=== PATIENT | male | born 1950 | race Caucasian/White ===

== ENCOUNTER 2016-07-24 20:25 | Observation (INO) | payer OTHER ==
--- NOTE | 2016-07-24 20:36 | NUR ---
PER EATING DINNER 1999, PT HAD DIFFICULTY NAVIGATING WITH L SIDE, SPEECH SL THICK, HAD PA LAST WEEK AND WAS STENTED, PT SL WEAKER L ARM ?SL FACIAL DROOP L SIDE. DISCUSSED WITH PT TO FOR FOR EMERGENT HEAD CT
--- NOTE | 2016-07-24 20:45 | NUR ---
PT TO CT ON CM WITH THIS RN. PT AWAKE/ALERT WITH EASY WOB, DENIES PAIN. L SIDED FACIAL DROOP AND SLURRED SPEECH NOTED. REPORTS TO THIS RN AT AT 2000 PT ATTEMPED TO GET OFF THE COUCH BUT WAS "SLUMPED OVER TO HIS LEFT SIDE, DROOLING ALOT, COULDN'T USE HIS L ARM OR GET UP WITH HIS L LEG." ON ARRIVAL REPORTS THAT SPEECH HAS IMPROVED AND MOVEMENT OF L EXTREMITIES GREATLY IMPROVED. STRONG EQUAL HAND GRASPS NOTED BY THIS RN. NO DRIFT TO UPPER OR LOWER EXTREMITIES. A&0X3. DENIES PAIN. PT WITH HX OF [place] WITH STENTS PLACED LAST WEEK BY MD POSEY. MD GARCIA TO BEDSIDE FOR EVAL UPON RETURN FROM CT.
--- NOTE | 2016-07-24 20:51 | ED NEURO DEFICIT/STROKE ---
History of Present Illness General Chief Complaint: General Adult Stated Complaint: "LEFT SIDE WEAKNESS, HAD A HEART ATTACK LAST WEEK" Source: patient, family, old records Exam Limitations: no limitations Vital Signs & Intake/Output Vital Signs & Intake/Output Vital Signs Date Time Temp Pulse Resp B/P B/P Pulse O2 O2 Flow FiO2 Mean Ox Delivery Rate 07/24 2226 96.7 60 16 155/79 98 Room Air 07/24 2120 Room Air 07/24 2036 96.6 95 22 159/78 96 Allergies Coded Allergies: No Known Allergies (07/24/16) Reconcile Medications Aspirin (Ecotrin*) 81 MG TABLET.DR 1 TAB PO QAM HEART/BLOOD (Reported) Atorvastatin Calcium (Lipitor) 80 MG TABLET 1 TAB PO QPM CHOLESTEROL ( Reported) Carvedilol 12.5 MG TABLET 1 TAB PO BID HEART/BP (Reported) Cholecalciferol (Vitamin D3) 1,000 UNIT TABLET 1 TAB PO QAM SUPPLEMENT ( Reported) Cyanocobalamin (Vitamin B-12) 1,000 MCG TABLET 1 TAB PO QAM SUPPLEMENT ( Reported) Insulin-Lantus (Lantus) 100 UNIT/ML VIAL 25 UNITS SC QPM DM (Reported) Lisinopril 10 MG TABLET 1 TAB PO QPM BP (Reported) Metformin HCl 1,000 MG TABLET 1 TAB PO BID DM (Reported) Multivitamin (Multi-Day Vitamins) 1 EACH TABLET 1 TAB PO QAM SUPPLEMENT ( Reported) Sertraline HCl 25 MG TABLET 1 TAB PO QAM MENTAL HEALTH (Reported) Ticagrelor (Brilinta) 90 MG TABLET 1 TAB PO BID HEART/BLOOD (Reported) Triage Note: PER EATING DINNER 1999, PT HAD DIFFICULTY NAVIGATING WITH L SIDE, SPEECH SL THICK, HAD [place] LAST WEEK AND WAS STENTED, PT SL WEAKER L ARM ?SL FACIAL DROOP L SIDE. DISCUSSED WITH PT TO FOR FOR EMERGENT HEAD CT Triage Nurses Notes Reviewed? yes HPI: This was eating dinner with his and HAD LEFT-SIDED WEAKNESS IN THE LEFT FACIAL DROOP. PATIENT HAD AN [place] WITH CARDIAC CATHETERIZATION AND STENT PLACEMENT LAST SUNDAY. PATIENT HAS BEEN ON POLENTA AND ASPIRIN SINCE THEN. THE LEFT-SIDED WEAKNESS HAS RESOLVED HOWEVER HE CONTINUES TO HAVE LEFT FACIAL DROOP AND THICK SPEECH. PATIENT DENIES ANY HEADACHE. THERE IS NO NUMBNESS OR TINGLING. PATIENT DENIES ANY CHEST PAIN OR SHORTNESS OF BREATH. Past History Travel History Traveled to [place] past 21 day No Medical History Any Pertinent Medical History? see below for history Neurological: NONE EENT: NONE Cardiovascular: hypertension, [place] WITH STENT Respiratory: NONE Gastrointestinal: NONE Hepatic: NONE Renal: NONE Musculoskeletal: NONE Psychiatric: NONE Endocrine: IDDM Surgical History Surgical History: non-contributory Psychosocial History What is your primary language Mohawk Tobacco Use: Never used ETOH Use: denies use Illicit Drug Use: denies illicit drug use Family History Hx Contributory? No Review of Systems Review of Systems Constitutional: Reports: no symptoms. EENTM: Reports: no symptoms. Respiratory: Reports: no symptoms. Cardiovascular: Reports: no symptoms. GI: Reports: no symptoms. Genitourinary: Reports: no symptoms. Musculoskeletal: Reports: no symptoms. Skin: Reports: no symptoms. Neurological/Psychological: Reports: see HPI. Hematologic/Endocrine: Reports: no symptoms. Immunologic/Allergic: Reports: no symptoms. All Other Systems: Reviewed and Negative Physical Exam Physical Exam General Appearance: well developed/nourished, alert, awake Head: atraumatic, normal appearance Eyes: Bilateral: PERRL, EOMI. Ears, Nose, Throat: moist mucous membrane, hearing grossly normal Neck: normal inspection, supple, full range of motion Respiratory: normal breath sounds, chest non-tender, no respiratory distress, lungs clear Cardiovascular: regular rate/rhythm, normal peripheral pulses Gastrointestinal: normal bowel sounds, soft, non-tender, no organomegaly Back: normal inspection, normal range of motion Extremities: normal range of motion Psychiatric: awake, alert, oriented x 3 Cranial Nerves: normal hearing, PERRL, facial droop Coordination/Gait: normal finger to nose, normal gait Skin: intact, normal color, warm/dry Lymphatic: no anterior cervical sari Core Measures CVA/TIA Diagnosis: Yes NIH Stroke Scale: Total 3 Date Last Known Well: 07/24/16 Time Last Known Well: 1999 Neurological S/S of CVA: Difficulty Speaking, Left Hemiparesis Symptom Start Date: 07/24/16 Symptom Start Time: 1999 Reason tPA not ordered+ Medical Contraindication Severe Sepsis Present: No Septic Shock Present: No Bedside Dysphagia Screen Bedside Swallow Eval Done: Yes Result of Evaluation: Pass Progress Differential Diagnosis: electrolyte imbalance, intracranial Hem., intracranial mass/tumor, stroke, subarachnoid Hem. Plan of Care: Orders Procedure Date/time Status Nothing by Mouth 07/25 B Active LIPID PANEL 07/25 599 Active CBC WITHOUT DIFFERENTIAL 07/25 599 Active BASIC ELECTROLYTES PLUS BUN&CR 07/25 599 Active Pathway - chart 07/24 2224 Active Pathway - chart 07/25 2223 Active Patient Data 07/[address] in observation 07/24 2205 Active Telemetry/Project Director 07/24 2033 Active TROPONIN LEVEL 07/24 2033 Complete PARTIAL THROMBOPLASTIN TIME 07/24 2033 Complete PROTHROMBIN TIME 07/24 2033 Complete COMPREHENSIVE METABOLIC PANEL 07/24 2033 Complete CBC WITHOUT DIFFERENTIAL 07/24 2033 Complete EKG 07/24 2026 Active [id number] DOPPLER 07/24 UNK Active SWALLOW EVALUATION 07/24 UNK Active PT Evaluate & Treat 07/24 UNK Active House Staff 07/24 UNK Active Occupational Tx Eval & Treat 07/24 UNK Active VTE Mechanical Prophylaxis 07/24 UNK Active Vital Signs 07/24 UNK Active Telemetry/Project Director 07/24 UNK Active Precautions 07/24 UNK Active NIH Stroke Scale 07/24 UNK Active Current Medications Sig/Krystle Start time Last Medication Dose Stop Time Status Admin Acetaminophen 650 MG ONCE ONE 07/24 2244 UNVr (Tylenol) 07/24 2245 Acetaminophen 650 MG Q6P PRN 07/24 2229 UNVr (Tylenol) Acetaminophen/ 1 TAB Q6P PRN 07/24 2229 UNVr Hydrocodone Bitart (Vicodin) Morphine Sulfate 4 MG Q4P PRN 07/24 2229 UNVr (Morphine) Laboratory Tests 07/24/162057: Anion Gap 12, Estimated GFR > 60, BUN/Creatinine Ratio 21.0, Glucose 244 H, Calcium 9.1, Total Bilirubin 0.5, AST 26, ALT 45, Alkaline Phosphatase 85, Troponin I 2.46 *H, Total Protein 6.0 L, Albumin 3.5, Globulin 2.5, Albumin/ Globulin Ratio 1.4, PT 11.3, INR 1.08, APTT 28, CBC w Diff NO MAN DIFF REQ, RBC 4.23 L, MCV 93.2, MCH 30.4, RDW 12.5, MPV 9.7, Gran % 62.7, Lymphocytes % 21.4, Monocytes % 9.0, Eosinophils % 6.0 H, Basophils % 0.9, Absolute Granulocytes 4.9, Absolute Lymphocytes 1.7, Absolute Monocytes 0.7 H, Absolute Eosinophils 0.5, Absolute Basophils 0.1, PUBS MCHC 32.6 L Diagnostic Imaging: Viewed by Me: Radiology Read, CT Scan. Discussed w/RAD: Radiology Read, CT Scan. Radiology Impression: PATIENT: MYLES BOUCHER PRESENT AGE: 66 PATIENT ACCOUNT NO: [id number] : 48 LOCATION: ER ORDERING PHYSICIAN: ANNE GARCIA MD SERVICE DATE: 07/24/16 EXAM TYPE: CAT - CT HEAD WO IV CONTRAST EXAMINATION: CT HEAD WITHOUT CONTRAST CLINICAL INFORMATION: Left-sided weakness COMPARISON: None TECHNIQUE: Contiguous axial imaging was performed from the skull base to vertex without intravenous administration of contrast. DLP: 672.25 mGy-cm FINDINGS: There is no evidence of acute intracranial hemorrhage or acute territorial infarction. No abnormal mass effect or midline shift is seen. Fernandes to white matter differentiation is well preserved. No extra-axial fluid collections are identified. There are old small lacunar infarcts versus prominent perivascular space in the left basal ganglia. There is atrophy with prominence of the ventricles and the sulci and hypodensity of the periventricular white matter due to chronic small vessel ischemic disease. There is vascular calcifications of the internal carotid arteries bilaterally. The osseous structures and soft tissues are normal. The mastoid air cells and visualized portions of the paranasal sinuses are well aerated. IMPRESSION: No acute intracranial pathology. DICTATED BY: ANTOINE CHONG MD DATE/ TIME DICTATED:07/24/162047 TEMPORARY OFFICE ASSISTANT:LOIS DATE/TIME TRANSCRIBED: 07/24/162047 CONFIDENTIAL, DO NOT COPY WITHOUT APPROPRIATE AUTHORIZATION. < Electronically signed in Other Vendor System> SIGNED BY: ANTOINE CHONG MD 2054 CXR Impression: PATIENT: MYLES BOUCHER PRESENT AGE: 66 PATIENT ACCOUNT NO: [id number] : 48 LOCATION: ER ORDERING PHYSICIAN: ANNE GARCIA MD SERVICE DATE: 07/24/16 EXAM TYPE: RAD - XRY- PORTABLE CHEST XRAY EXAMINATION: XR PORTABLE CHEST CLINICAL INFORMATION: CVA COMPARISON: None TECHNIQUE: Portable AP view of the chest was obtained. FINDINGS : No evidence for failure or effusion. Some minimal density at the right base may be a small area of atelectasis or infiltrate. Mild cephalization of the vasculature. IMPRESSION: Cephalization of the vessels. No failure. Mild right basilar opacity may be a small area of infiltrate. Follow-up PA and lateral films recommended when the patient is able DICTATED BY: EARLINE COTA MD DATE/ TIME DICTATED:07/24/162121 TEMPORARY OFFICE ASSISTANT:LOIS DATE/TIME TRANSCRIBED: 07/24/162121 CONFIDENTIAL, DO NOT COPY WITHOUT APPROPRIATE AUTHORIZATION. < Electronically signed in Other Vendor System> SIGNED BY: EARLINE COTA MD 07/24/162126 Initial ED EKG: NSR, ST ELEVATION LATERALLY, NO RECIPRICAL CHANGES., NO OLD TO COMPARE Rhythm Strip: normal sinus rhythm Comments: D/W DR. CHANG, SYMPTOMS ARE SLOWLY RESOLVING AND RISKS OUTWEIGHT BENIFITS OF TPA. FAMILY AND PT CONCUR. D/W DR. RAMIREZ, PT WAS SEEN BY TODAY. HE WILL LOOK AT THE EKG FROM EARLIER TODAY. DR. RAMIREZ CALLED BACK, EKG UNCHANGED AND TROP WAS VERY ELEVATED LAST WEEK SO THIS TROP IS STILL COMING DOWN. Departure Departure Disposition: STILL A PATIENT Condition: Stable Clinical Impression Primary Impression: CVA (cerebral vascular accident) Referrals: KAY FINE,HIEU Page (PCP/Family) Departure Forms: Customer Survey General Discharge Information Observation Note Spoke With: RUMA BORREGO MD Physician Advisor Notified: JOSE FINE,ANNE Stallings Place Patient In: Non-ED OBS Care Area Rationale for Observation: My rational for observation is as follows [NEURO CONSULT,TELE MONITORING, CAROTID U/S, ECHO.]. Critical Care Note Critical Care Note Critical Care Time: mins: (30 MIN)
--- NOTE | 2016-07-24 20:55 | CT SCAN REPORT ---
EXAMINATION: CT HEAD WITHOUT CONTRAST CLINICAL INFORMATION: Left-sided weakness COMPARISON: None TECHNIQUE: Contiguous axial imaging was performed from the skull base to vertex without intravenous administration of contrast. DLP: 672.25 mGy-cm FINDINGS: There is no evidence of acute intracranial hemorrhage or acute territorial infarction. No abnormal mass effect or midline shift is seen. Fernandes to white matter differentiation is well preserved. No extra-axial fluid collections are identified. There are old small lacunar infarcts versus prominent perivascular space in the left basal ganglia. There is atrophy with prominence of the ventricles and the sulci and hypodensity of the periventricular white matter due to chronic small vessel ischemic disease. There is vascular calcifications of the internal carotid arteries bilaterally. The osseous structures and soft tissues are normal. The mastoid air cells and visualized portions of the paranasal sinuses are well aerated. IMPRESSION: No acute intracranial pathology.
[2016-07-24 21:08] LABS: ABSOLUTE BASOPHIL COUNT 0.1 /CUMM (0.0-0.2); ABSOLUTE EOSINOPHIL COUNT 0.5 /CUMM (0.0-0.7); ABSOLUTE GRANULOCYTE CT 4.9 /CUMM (1.4-6.5); ABSOLUTE LYMPH COUNT 1.7 /CUMM (1.2-3.4); ABSOLUTE MONOCYTE COUNT 0.7 /CUMM (0.10-0.60); BASOPHIL % 0.9 % (0.0-2.0); GRANULOCYTE % 62.7 % (42.2-75.2); HEMATOCRIT 39.4 % (42-52); MEAN CORPUSCULAR HGB 30.4 PG (27.0-31.0); MEAN CORPUSCULAR HGB CONC 32.6 G/DL (33.0-37.0); MEAN CORPUSCULAR VOLUME 93.2 FL (80.0-94.0); MEAN PLATELET VOLUME 9.7 FL (7.4-10.4); PLATELET COUNT 214 /CUMM (130-400); RBC DISTRIBUTION WIDTH 12.5 % (11.5-14.5); RED BLOOD CELL CT 4.23 /CUMM (4.70-6.10); WHITE BLOOD CELL COUNT 7.8 /CUMM (4.8-10.8)
--- NOTE | 2016-07-24 21:13 | NUR ---
BLOOD DRAWN AND SENT TO LAB BY ALYSE BUTLER. [facility].
[2016-07-24 21:23] LABS: PT 11.3 SEC (9.4-12.5); PTT 28 SEC (25-37)
--- NOTE | 2016-07-24 21:27 | RADIOLOGY REPORT ---
EXAMINATION: XR PORTABLE CHEST CLINICAL INFORMATION: CVA COMPARISON: None TECHNIQUE: Portable AP view of the chest was obtained. FINDINGS: No evidence for failure or effusion. Some minimal density at the right base may be a small area of atelectasis or infiltrate. Mild cephalization of the vasculature. IMPRESSION: Cephalization of the vessels. No failure. Mild right basilar opacity may be a small area of infiltrate. Follow-up PA and lateral films recommended when the patient is able
--- NOTE | 2016-07-24 21:50 | NUR ---
CRITICAL TEST RESULTS [id number] MYLES BOUCHER 66 M TESTS AND RESULTS: TROPONIN 2.46 Results received and read back by: CARRIE HUI Results received date and time: 07/24/16 2151 The following provider was notified of the results, and read the results back: MD GARCIA Notified date and time: 07/24/16 at 2142
[2016-07-24] MEDS ORDERED: CARVEDILOL12.5 M1 PO (21:53)
[2016-07-24] MEDS ORDERED: LISINOPRIL10 M1 PO (21:53)
[2016-07-24] MEDS ORDERED: LIPITOR80 M1 PO (21:54)
[2016-07-24] MEDS ORDERED: BRILINTA90 M1 PO (21:54)
[2016-07-24] MEDS ORDERED: SERTRALINE HCL25 MG PO (21:54)
[2016-07-24] MEDS ORDERED: ASPIRIN EC81 M1 PO (21:55)
[2016-07-24] MEDS ORDERED: VITAMIN D31000 UNI2 PO (21:56)
[2016-07-24] MEDS ORDERED: LANTUS100 UNIT/1 SC (21:56)
[2016-07-24] MEDS ORDERED: METFORMIN HCL1000 M1 PO (21:57)
[2016-07-24] MEDS ORDERED: MULTI-DAY VITA1 EACH PO (21:57)
[2016-07-24] MEDS ORDERED: VITAMIN B-121000 MC3 PO (21:58)
--- NOTE | 2016-07-24 22:02 | NUR ---
MD GARCIA TO BEDSIDE TO DISCUSS LAB AND IMAGING RESULTS.
--- NOTE | 2016-07-24 22:13 | History & Physical ---
HOMAR FINE,DEMAR 07/24/16 2212: General Information and HPI MD Statement: I have seen and personally examined MYLES SEBASTIAN and documented this H&P. The patient is a 66 year old M who presented with a patient stated chief complaint of []. Source of Information: patient, family, old records Exam Limitations: no limitations History of Present Illness: Patient is a 66-year-old male with significant past medical history of diabetes, hypertension, hyperlipidemia, depression, anxiety , presented with chief complaints of sudden onset of left-sided weakness , slurring of speech, left facial drop. According to the patient and he was eating dinner at 20:00, he suddenly started having difficulty in navigating with his left side along with slurring of the speech and his facial appearance become altered. He denies for similar episode in the past. He also denies any chest pain, dizziness, headache, seizures, up rolling of the eyes, blurry vision, shortness of breath, nausea, vomiting, abdominal pain, constipation, diarrhea, difficulty in the swallowing, and confusion. Of note, he had an episode of ND around a week ago which was followed by cardiac catheterization.On further asking, it was found that he had one stent in LAD which is a drug-eluting stent.He is on aspirin and Brillinta Personal history-he smokes 1 cigarette per day from last 50 years Allergies - NKDA Surgeries - Lithotripsy, Allergies/Medications Allergies: Coded Allergies: No Known Allergies (07/24/16) Home Med list Aspirin (Ecotrin*) 81 MG TABLET.DR 1 TAB PO QAM HEART/BLOOD (Reported) Atorvastatin Calcium (Lipitor) 80 MG TABLET 1 TAB PO QPM CHOLESTEROL ( Reported) Carvedilol 12.5 MG TABLET 1 TAB PO BID HEART/BP (Reported) Cholecalciferol (Vitamin D3) 1,000 UNIT TABLET 1 TAB PO QAM SUPPLEMENT ( Reported) Cyanocobalamin (Vitamin B-12) 1,000 MCG TABLET 1 TAB PO QAM SUPPLEMENT ( Reported) Insulin-Lantus (Lantus) 100 UNIT/ML VIAL 25 UNITS SC QPM DM (Reported) Lisinopril 10 MG TABLET 1 TAB PO QPM BP (Reported) Metformin HCl 1,000 MG TABLET 1 TAB PO BID DM (Reported) Multivitamin (Multi-Day Vitamins) 1 EACH TABLET 1 TAB PO QAM SUPPLEMENT ( Reported) Sertraline HCl 25 MG TABLET 1 TAB PO QAM MENTAL HEALTH (Reported) Ticagrelor (Brilinta) 90 MG TABLET 1 TAB PO BID HEART/BLOOD (Reported) Past History Travel History Traveled to [place] past 21 day No Medical History Neurological: NONE EENT: NONE Cardiovascular: hypertension, ND WITH STENT Respiratory: NONE Gastrointestinal: NONE Hepatic: NONE Renal: NONE Musculoskeletal: NONE Psychiatric: NONE Endocrine: IDDM Surgical History Surgical History: non-contributory Past Family/Social History Psychosocial History ETOH Use: denies use Illicit Drug Use: denies illicit drug use Review of Systems Review of Systems Constitutional: Denies: chills, diaphoresis, fever, malaise, weakness. Cardiovascular: Denies: chest pain, edema, orthopena, palpitations, peripheral edema. Respiratory: Reports: cough. Denies: hemoptysis, orthopnea, short of breath, sputum production, stridor. GI: Denies: abdominal pain, bloating, constipation, diarrhea, distention, nausea, vomiting. Genitourinary: Denies: no symptoms. Musculoskeletal: Denies: no symptoms. Skin: Denies: no symptoms. Neurological/Psychological: Reports: weakness. Denies: headache, numbness, paresthesia, tingling, tremors, unable to move lower ext, unable to move upper ext. Comments he was having slurring of speech, left facial droop otherwise asymptomatic. Exam & Diagnostic Data Last 24 Hrs of Vital Signs/I&O Vital Signs Date Time Temp Pulse Resp B/P B/P Pulse O2 O2 Flow FiO2 Mean Ox Delivery Rate 07/24 2120 Room Air 07/24 2036 96.6 95 22 159/78 96 Physical Exam General Appearance Alert, Oriented X3, Cooperative, No Acute Distress HEENT Atraumatic, PERRLA, EOMI Cardiovascular Normal S1, Normal S2, murmur present in right pulmonary area Lungs Clear to Auscultation, Normal Air Movement Abdomen Soft, No Tenderness Neurological Strength at 5/5 X4 Ext, Normal Tone, Sensation Intact, slurring of speech, although making complete sentences, comprehensible, left sided 7 facial nerve palsy, both planter downgoing Extremities No Clubbing, No Cyanosis, No Edema Vascular Normal Pulses, Pulses Symmetrical Last 24 Hrs of Labs/Bryce: Laboratory Tests 07/24/162057: Anion Gap 12, Estimated GFR > 60, BUN/Creatinine Ratio 21.0, Glucose 244 H, Calcium 9.1, Total Bilirubin 0.5, AST 26, ALT 45, Alkaline Phosphatase 85, Troponin I 2.46 *H, Total Protein 6.0 L, Albumin 3.5, Globulin 2.5, Albumin/ Globulin Ratio 1.4, PT 11.3, INR 1.08, APTT 28, CBC w Diff NO MAN DIFF REQ, RBC 4.23 L, MCV 93.2, MCH 30.4, RDW 12.5, MPV 9.7, Gran % 62.7, Lymphocytes % 21.4, Monocytes % 9.0, Eosinophils % 6.0 H, Basophils % 0.9, Absolute Granulocytes 4.9, Absolute Lymphocytes 1.7, Absolute Monocytes 0.7 H, Absolute Eosinophils 0.5, Absolute Basophils 0.1, PUBS MCHC 32.6 L Diagnostic Data EKG Results HR -71, NSR, ST elevation and QS complex in V2/V3,V4 CXR Results Cephalization of the vessels. No failure. Mild right basilar opacity may be a small area of infiltrate. Other Results CT Head - No acute intracranial pathology. Assessment/Plan Assessment: Patient is a 66-year-old male with significant past medical history of diabetes, hypertension, hyperlipidemia, depression, anxiety , presented with chief complaints of sudden onset of left-sided weakness , slurring of speech, left facial drop. In the ED, patient's symptoms were gradually resolving. CT scan of the head was done which was not showing any acute changes. Discussed with Dr. Garcia over the phone. He thinks because risk outweighs the benefit of TPA, so pediatric care and transfer the patient to telemetry for further monitoring. Vital signs at the time of admission-temperature 96.6, pulse 95, respiratory rate 22, his pressure 159/78, SPO2 96% on room air Chest x-ray -Cephalization of the vessels,mild right basilar opacity may be a small area of infiltrate. CT scan of the head - No acute intracranial pathology. Plan - TIA - * Discussed with Dr. bolanos over the phone the morning as the patient has having resolving symptoms he does not recall TPA * Neuro check every 2 * Swallow evaluation * PT/OT * We will place consult of neurology * We will continue aspirin and brillinta as before * We will follow carotid doppler, echo, MRI of the brain(If stents are MRI compatible) * We will keep patient blood pressure, high for next 24-hour, by giving IV fluids-permissive hypertension Coronary artery disease, status post stent, with elevated troponin * Discussed with the Dr. Montero over the phone, according to them, patient does not have any EKG changes. They're thinking that elevated Trop is possibly due to recent ND and stenting * We'll put consult for cardiology-Dr. Jarrett * We'll continue aspirin and Brillinta as before Type 2 diabetes- * We will stop the metformin and start patient on Levemir 12 units twice a day * NovoLog according to the sliding scale * Blood sugar measurement TID/HS Anxiety /Depression - * we will continue Zoloft Diet-heart healthy diet. After patient passed the swallow evaluation DVT prophylaxis-ALP S/heparin CODE STATUS-full code As Ranked By This Provider Problem List: 1. CVA (cerebral vascular accident) 2. Diabetes mellitus 3. Hyperlipidemia 4. Hypertension Core Measures/Miscellaneous Acute Coronary Syndrome ACS Diagnosis: No Cerebrovascular Accident CVA/TIA Diagnosis: Yes NIH Stroke Scale: Total 3 Date Last Known Well: 07/24/16 Time Last Known Well: 1999 Neurological S/S of CVA: Difficulty Speaking, Left Hemiparesis Symptom Start Date: 07/24/16 Symptom Start Time: 1999 Reason tPA not ordered Medical Contraindication Bedside Swallow Eval Done: Yes Result of Evaluation: Pass Antithrombotic: No AFIB: No Aflutter: No Anticoagulant: Yes Evidence of Atherosclerosis: Yes LDL Assessed Within 24 Hours: No Currently on Statin: Yes Rehab Needs Assessed: Medical Eval for Rehab PT Consult Ordered: Yes Congestive Heart Failure CHF Diagnosis: No Venous Thromboembolism VTE Risk Factors: Age > 40 No [facility] VTE prophylaxis d/t: No contraindications No VTE Pharm Prophylaxis d/t: No contraindications VTE Diagnosis: No VTE Type: NONE VTE Confirmed by (Test): NONE Severe Sepsis Severe Sepsis Present: No Septic Shock Septic Shock Present: No Miscellaneous Documentation Attending Case Discussed With: Dr Duke Primary Care Physician: HIEU VILLANUEVA MD, I Patient sees these Specialists Technical Systems Architect Level of Patient Care: Telemetry LAUREL HENDRICKSON 07/24/16 6143: Resident Review Statement Resident Statement: examined this patient, discussed with fashion styling intern, agreed with fashion styling intern, discussed with family, reviewed EMR data (avail), discussed with nursing , discussed with case mgmt, reviewed images, amended to note Other Findings: 66-year-old male with a past medical history of coronary artery disease status post PCI this past Sunday, not insulin-dependent diabetes mellitus, depression presented to the ER with chief complaint of left-sided weakness, facial droop and some slurriness of speech. According to the patient and the family, Mr. Sebastian was in his usual state of health having dinner earlier this evening when he is suddenly experienced left- sided weakness with facial droop., Drooling of saliva and left upper extremity weakness. Of note he was started to slouch on his left side. Patient denies any chest pain, palpitations, should seizure-like activity, eye rolling, loss of consciousness, headache prior to the event occurring. Of note. He was unable to recollect whether his lower extremity was weak because he was sitting in a chair. He denies any blurry vision however does endorse clearness of speech. Of note he recently underwent a cardiac cath at [address] and had a drug- eluting stent placed in his LAD. He's been compliant with his medications since. He followed up with Dr. Maynard was his primary fisheries specialist earlier this morning and everything was reportedly normal according to him. Of note patient is a smoker and quit smoking about 2 weeks ago when he had a cardiac cath. He smokes 1-2 cigarettes and has been doing that for over 50 years now. He denies any allergies and states that there is a history of stroke in both of his parents were more than 70 years of age. Vitals at time of admission blood pressure 159/78, respiratory rate 22, pulse 95 , afebrile saturating 96% on room air. On physical exam, he is alert and oriented 3 sitting comfortably in bed. HEENT revealed PERRLA, moist mucous membranes. Examination of the neck did not reveal any elevated JVD, cervical lymphadenopathy or carotid bruit. Cardiovascular exam pertinent for normal S1, S2, grade 3 x 6 systolic murmur heard best at right sternal border no rubs or gallops appreciated. Respiratory exam was unremarkable with chest clear to auscultation bilaterally. Abdominal exam was benign with abdomen soft, nontender, nondistended with normal bowel sounds in all 4 quadrants. Neuro exam pertinent for cranial nerve II-, VIII-XII grossly intact, with some mild facial drooping on the left side strength 5 out of 5 in all 4 extremities, downgoing plantars bilaterally, normal tone, 2+ reflexes in all 4 extremities. Labs pertinent for any change of 12.9/39.4, white blood cell count of 2 7800, platelet count of 214,000. Serum chemistries revealed a sodium of 135, potassium of 3.9, bicarbonate 23, anion gap 12, BUN 21 and creatinine 1.0. Serum glucose elevated to 244. LFTs unremarkable with an AST/active 26/45, total bili of 0.5 alkaline phosphatase of 85 with first set of troponin elevated at 2.46. INR was 1.08. Chest x-ray revealed no evidence of heart failure effusion, minimal density at right base questionable atelectasis versus infiltrate, mild cephalization of the vasculature. Head CT showed no acute intracranial pathology. EKG revealed Normal sinus rhythm with a heart rate of 71, normal axis, poor R- wave progression, Q waves in lateral leads. Case was discussed with Dr. Mendes, since symptoms are slowly resolving and risks outweigh benefits of TPA will hold off. Also spoke with Dr. Montero, troponin was very elevated last week sepsis transit troponin is probably trending down. Assessment and plan Admit patient to telemetry #Transient ischemic attack Given that the patient's symptoms are now resolving. TPA was not administered given high risk of bleeding, and resolution of symtpoms. Continue an aspirin 81 mg daily, atorvastatin 80 mg daily. Neurochecks every 4 hours Maintain on aspiration precautions Maintained on fall precautions Ultrasound carotid to rule out carotid artery stenosis Echocardiogram to rule out any thrombus MRI brain in AM Allow permissive blood pressure PT/OT eval Speech eval in am NPO for now, pending swallow eval #Elevated Troponins In setting of recent cardiac cath, nmost likely trending down. Will repeat another set with morning blood work. Of note, patient does not c/o chest pain and had higher no.s last week, as per ED records. #CAD s/p stent - Continue aspirin 81 mg daily,Brillenta 90mg twice a day, carvedilol 12.5 g twice a day Will hold Lisinopril 10mg daily. -Insulin dependent diabetes mellitus Maintain on Levemir 12 units twice a day subcutaneous and Novolin sliding scale every 6 hours while he is nothing by mouth Continue to hold his oral hypoglycemic agents. Accu checks #History of depression and anxiety Continue on Zoloft 25 mg DVT prophylaxis Heparin 5000 international units 3 times a day subcutaneous Diet Nothing by mouth for now pending swallow eval CODE STATUS Full code RUMA BORREGO 07/25/16 0320: Attending MD Review Statement Attending Statement Attending MD Statement: examined this patient, discuss w/resident/PA/[employer], agreed w/resident/PA/[employer], discussed with family, reviewed EMR data (avail), reviewed images, amended to note Attending Assessment/Plan: CC: Left facial weakness, slurry speech, left arm slumping, left leg weakness PMH: DM, HTN, HLD, depression, anxiety, CAD with recent ND S/P PCI Patient was brought in for left-sided weakness as mentioned above. Patient was eating dinner at 7- 7:30 PM, when he finished his dinner and about to get up he slumped on his left side, witnessed by with left leg weakness, left upper extremity weakness, left mouth drooping, slurred speech. By the time patient came to ER his left upper extremity and lower extremity weakness improved but persistent left facial drooping, and residue of slurred speech. No chest pain, shortness of breath, fall, palpitations, diaphoresis, dizziness, no choking while eating dinner. Patient has new onset cough since this episode which is dry. Patient had substernal chest pain last week, was found to have ND, underwent PCI , was started on aspirin and Brilinta after the stent. Patient has been compliant with all his medication and took his today's dose of aspirin 81 mg and Brilinta, along with his antihypertensives. Vitals: Afebrile, pulse and 60s, RR 20s, blood pressure 158/77, saturating well on room air. On exam: A O 3, minimal slurred speech, facial weakness on left side, wrinkling of forehead present, minimal slurry speech, 4+ /5 weakness left upper extremity as compared to right side, drifting down of left upper extremity without pronation as compared to right side, cooperative, no acute distress, neck supple , JVD normal, no lymphadenopathy, mucosa moist, no dependent edema, no obvious skin rashes or inflammation CVS: S1-S2, RRR, systolic murmur. RS: Clear to auscultate bilaterally. Abdomen: Soft, NT, ND, bowel sounds present. Peripheral pulses perfusion normal Labs: CBC, BMP, LFT unremarkable, glucose 244, troponin 2.46, INR 1.08 CT head: No acute intracranial pathology CXR:Cephalization of the vessels. No failure. Mild right basilar opacity may be a small area of infiltrate. Follow-up PA and lateral films recommended when the patient is able. EKG: ST T-wave changes in lateral leads A and P Patient had weakness left upper extremity, left lower extremity, slurred speech, facial drooping at home. Symptomatically his weakness in extremities is improving but still residual weakness is present in left upper extremity, slurred speech, facial drooping. Patient may be having a small ischemic stroke, no evidence of hemorrhage on CT scan. Neurology was called by ER physician who suggested not to give TPA at this point given that patient's recent ND, S/P PCI, on Brilinta and aspirin and weakness already improving. Secondly patient's troponin are elevated and has some ST changes in lateral leads, ER physician called fisheries specialist to confirm if these changes are acute or resolving, patient' s previous troponin were markedly elevated, it appears troponins are trending down. Patient does not have any acute chest pain currently. # CVA: Suspected ischemic stroke # History of CAD recent ND S/P stent # History of HTN # History of DM # History of HLD - Admit to telemetry - Continuous telemetry monitoring - Neuro check every 4 hours - Patient already received a dose of aspirin and Brilinta at home today, at around 7 PM - Continue atorvastatin 80 mg - Permissive hypertension - IV normal saline at 50-75 mL - Treat only if systolic pressure more than 190 diastolic more than 100 - Consult neurology - Consult cardiology - MRI in a.m. - Carotid Doppler, 2-D echocardiogram - Swallow evaluation, OT PT evaluation, speech evaluation - Nothing by mouth as patient is having some cough after this episode - Patient also has right basilar opacity on chest x-ray, and dry cough, if patient develops fever, or has significant leukocytosis, consider obtained PA lateral view for chest x-ray and started antibiotics for suspected aspiration. - Heparin for DVT prophylaxis - Continue basal bolus insulin for diabetes.
--- NOTE | 2016-07-24 22:33 | NUR ---
HOUSE STAFF AT BEDSIDE FOR EVAL
--- NOTE | 2016-07-24 22:37 | NUR ---
PT ABLE TO SWALLOW WATER WITHOUT DIFFICULTY, WITNESSED BY HOSUE STAFF. MEDICATED WITH PO TYLENOL ORDERED FOR 04/11 PARIKH.
--- NOTE | 2016-07-24 23:25 | NUR ---
SLEEPING SOUNDLY WITH EVEN NONLABORED RESPIRATIONS NOTED.
--- NOTE | 2016-07-24 23:36 | NUR ---
FINGERSTICK GLUCOSE LEVEL READING 197
--- NOTE | 2016-07-25 01:34 | NUR ---
PT NOTED TO BE SLEEPING SOUNDLY WITH EASY WOB. AROUSABLE TO VERBAL STIMULI. NEUROS INTACT. SLIGHT L SIDED FACIAL DROOP PERSISTS. MOVED ONTO HOSPITAL BED FOR COMFORT.
--- NOTE | 2016-07-25 03:11 | NUR ---
SLEEPING SOUNDLY WITH EASY WOB. HR 60 ON CM.
--- NOTE | 2016-07-25 03:21 | Admission Certification ---
Admission Certification Certification Statement - As attending physician, I certify that at the time of - admission, based on clinical presentation, severity of - symptoms, need for further diagnostic testing and - therapeutic interventions, and risk of adverse outcomes - without in-hospital treatment, in my clinical assessment, - this patient requires an acute hospital stay for a minimum - of two nights or longer. I have also considered psychsocial - factors such as support system, advanced age, financial - issues, cognitive issues, and failed out-patient treatments, - past re-admission history, safety of patient, and lack of - compliance as applicable. Specific rationale supporting this admission is: CVA
--- NOTE | 2016-07-25 04:45 | NUR ---
pt sleeping soundly, arousable to verbal stimuli. L sided facial droop and mildly slurred speech noted to be slightly improved. pt denies pain, offers no complaints at this time. aware of 0600 bloodwork.
--- NOTE | 2016-07-25 06:23 | NUR ---
medicated with 2units novolin R as per sliding scale for fingerstick BS of 108. pt awake/akert with easy wob. denies physical pain.
--- NOTE | 2016-07-25 06:27 | NUR ---
AM BLOODWORK DRAWN AND SENT OFF TO THE LAB; FINGERSTICK GLUCOSE LEVEL READING 108, EKG DONE.
[2016-07-25 06:30] LABS: ABSOLUTE BASOPHIL COUNT 0.1 /CUMM (0.0-0.2); ABSOLUTE EOSINOPHIL COUNT 0.6 /CUMM (0.0-0.7); ABSOLUTE GRANULOCYTE CT 3.6 /CUMM (1.4-6.5); ABSOLUTE LYMPH COUNT 1.9 /CUMM (1.2-3.4); ABSOLUTE MONOCYTE COUNT 0.7 /CUMM (0.10-0.60); BASOPHIL % 1.1 % (0.0-2.0); EOSINOPHIL % 8.7 % (0-5); GRANULOCYTE % 52.5 % (42.2-75.2); HEMATOCRIT 38.5 % (42-52); MEAN CORPUSCULAR HGB 30.8 PG (27.0-31.0); MEAN CORPUSCULAR HGB CONC 32.9 G/DL (33.0-37.0); MEAN CORPUSCULAR VOLUME 93.4 FL (80.0-94.0); MEAN PLATELET VOLUME 9.5 FL (7.4-10.4); PLATELET COUNT 199 /CUMM (130-400); RBC DISTRIBUTION WIDTH 12.8 % (11.5-14.5); RED BLOOD CELL CT 4.12 /CUMM (4.70-6.10); WHITE BLOOD CELL COUNT 6.9 /CUMM (4.8-10.8)
--- NOTE | 2016-07-25 07:01 | NUR ---
CRITICAL TEST RESULTS [id number] MYLES BOUCHER 66 M TESTS AND RESULTS: TROPONIN 2.09 Results received and read back by: CARRIE HUI Results received date and time: 07/25/16 0701 The following provider was notified of the results, and read the results back: #211 MD HENDRICKSON PAGED TO BE MADE AWARE Notified date and time: 07/25/16 at 0700
--- NOTE | 2016-07-25 07:19 | NUR ---
ASSUMED CARE OF PT WHO IS A&O X3, NAD. NO SLURRING NOTED, SLIGHT LEFT FACIAL DROOP. PT DENIES CP, H/A. PT MADE AWARE OF NPO STATUS. WILL CONTINUE TO MONITOR
--- NOTE | 2016-07-25 07:34 | PN- Housestaff ---
VESTA FINE,MO 07/25/16 0734: Subjective Follow-up For: 1. Stroke 2. Recent MO Subjective: The patient was evaluated in the ED, he walked from the bathroom to the room, normal gait, did not report any chest pains, SOB, visual changes, worsening weakness in any extremity. He is able to use his left arm and does not feel weak any more. He reported his speech is back to normal. But he still has flattening of the left nasolabial fold. He has miguel drinking water since admission and swallowing medicines well. Review of Systems Constitutional: Reports: see HPI. Cardiovascular: Reports: no symptoms. Respiratory: Reports: no symptoms. Gastrointestinal: Reports: no symptoms. Genitourinary: Reports: no symptoms. Musculoskeletal: Reports: no symptoms. Neurological/Psychological: Reports: see HPI. Objective Last 24 Hrs of Vital Signs/I&O Vital Signs Date Time Temp Pulse Resp B/P B/P Pulse O2 O2 Flow FiO2 Mean Ox Delivery Rate 07/25 1206 97.9 60 20 134/68 96 Room Air 07/25 1113 97.8 94 18 170/76 98 Room Air 07/25 1004 98.0 61 20 174/90 07/25 0838 98.0 61 20 185/88 98 Room Air 07/25 0755 97.4 66 20 180/98 07/25 0605 96.0 58 18 196/92 97 Nasal Cannula 07/25 0202 97.0 58 20 158/77 99 Room Air 07/24 2227 96.7 60 16 155/79 98 Room Air 07/24 2121 Room Air 07/24 2037 96.6 95 22 159/78 96 Intake & Output 07/25 1600 07/25 0800 07/25 0000 Intake Total Output Total 275 Balance -275 Output, Urine 275 Patient 218 lb 218 lb Weight Weight Reported by Patient Measurement Method Physical Exam General Appearance: Alert, Oriented X3, Cooperative, No Acute Distress Cardiovascular: Regular Rate, Normal S1, Normal S2, 2/6 systolic ejection murmur at RSB Lungs: Clear to Auscultation, Normal Air Movement Abdomen: Normal Bowel Sounds, Soft, No Tenderness, No Hepatospenomegaly Neurological: Normal Gait, Normal Speech, Strength at 5/5 X4 Ext, Normal Tone, Sensation Intact, Cranial Nerves 3-12 NL, Reflexes 2+, left facial droop Extremities: No Edema, Normal Pulses Current Medications: Current Medications Sig/Krystle Start time Last Medication Dose Route Stop Time Status Admin Acetaminophen 650 MG ONCE ONE 07/24 2244 DC 07/24 PO 07/24 Acetaminophen 0 .STK-MED ONE 07/24 2238 DC PO Acetaminophen 650 MG Q6P PRN 07/24 2229 AC PO Acetaminophen/ 1 TAB Q6P PRN 07/24 2229 AC Hydrocodone Bitart PO Aspirin 0 .STK-MED ONE 07/24 2337 DC PO Aspirin 325 MG ONCE ONE 07/24 2330 CAN PO 07/24 233 Aspirin Buffered 81 MG QAM 07/25 1000 AC 07/25 PO 1004 Atorvastatin Calcium 80 MG QPM 07/250 AC PO Carvedilol 12.5 MG BID 07/25 1000 AC 07/25 PO 1004 Cholecalciferol 1,000 IU QAM 07/25 1000 AC 07/25 PO 1004 Cyanocobalamin 1,000 MCG QAM 07/25 1000 AC 07/25 PO 1004 Dextrose/Sodium 1,000 ML Q13H 07/24 2300 DC 07/24 Chloride IV 07/25 1159 2346 Heparin Sodium 5,000 UNIT Q8 07/25 1400 AC (Porcine) SC Insulin Detemir 12 UNITS BID 07/24 2300 AC 07/25 SC 1004 Insulin Human Regular 0 Q6 07/24 2359 AC 07/25 SC 0621 Lisinopril 10 MG DAILY 07/26 1000 AC PO Lisinopril 5 MG ONCE ONE 07/25 1200 CAN PO 07/25 1201 Lisinopril 5 MG ONCE ONE 07/25 0745 DC 07/25 PO 07/25 0746 0755 Lisinopril 0 .STK-MED ONE 07/25 0742 DC PO Morphine Sulfate 4 MG Q4P PRN 07/24 223 AC IV Sertraline HCl 25 MG QAM 07/25 1000 AC 07/25 PO 1004 Ticagrelor 90 MG BID 07/25 1000 AC 07/25 PO 1004 Last 24 Hrs of Lab/Bryce Results Last 24 Hrs of Labs/Mics: Laboratory Tests 07/25/16 1240: Troponin I 1.55 *H 07/25/16 0621: Anion Gap 11, Estimated GFR > 60, BUN/Creatinine Ratio 20.0, Hemoglobin A1c 8.1 H, Troponin I 2.09 *H, Triglycerides 98, Cholesterol 111, LDL Cholesterol, Calc 56 L, HDL Cholesterol 36 L, Cholesterol/HDL Ratio 3, Vitamin B12 927, CBC w Diff NO MAN DIFF REQ, RBC 4.12 L, MCV 93.4, MCH 30.8, RDW 12.8, MPV 9.5, Gran % 52.5, Lymphocytes % 27.4, Monocytes % 10.3 H, Eosinophils % 8.7 H, Basophils % 1.1, Absolute Granulocytes 3.6, Absolute Lymphocytes 1.9, Absolute Monocytes 0.7 H, Absolute Eosinophils 0.6, Absolute Basophils 0.1, PUBS MCHC 32.9 L 07/24/162057: Anion Gap 12, Estimated GFR > 60, BUN/Creatinine Ratio 21.0, Glucose 244 H, Calcium 9.1, Total Bilirubin 0.5, AST 26, ALT 45, Alkaline Phosphatase 85, Troponin I 2.46 *H, Total Protein 6.0 L, Albumin 3.5, Globulin 2.5, Albumin/ Globulin Ratio 1.4, PT 11.3, INR 1.08, APTT 28, CBC w Diff NO MAN DIFF REQ, RBC 4.23 L, MCV 93.2, MCH 30.4, RDW 12.5, MPV 9.7, Gran % 62.7, Lymphocytes % 21.4, Monocytes % 9.0, Eosinophils % 6.0 H, Basophils % 0.9, Absolute Granulocytes 4.9, Absolute Lymphocytes 1.7, Absolute Monocytes 0.7 H, Absolute Eosinophils 0.5, Absolute Basophils 0.1, PUBS MCHC 32.6 L Orders EKG Findings: SR, 62 bpm, recent anterior wall MO with persistent anterior ST elevations, old inferior MO, no change ECHO Findings: Pending Assessment/Plan Assessment: 66 year old male h/o HTN, dyslipidemia, DM, bicuspid AV with mild , s/p LAD MARLENE 6 days ago, brief episode of PAF post stenting presents with an acute likely lacunar stroke that resolved quickly. It seems on noncontrast head CT at he has had previous lacunar infarctions. EkG shows persistent anterior ST elevations, troponin mildly elevated-residual elevation from recent MO. Etiology of stroke could be from aortic atherosclerosis, cardioembolic (PAF), placed in Obs on Tele Assesment and Plan: 1. Transient ischemic attack Patient with left arm weakness, slurred speech and left facil droop, the latter two resolved already, droop persists. TPA was not administered given high risk of bleeding, and resolution of symtpoms. - Cardiology and Neuro on board - Will continue with ASA and Bralinta. Cardio advised to start Xarelto in 4 weeks - Neurochecks every 4 hours - ECHO and Carotid US pending - Will continue with ASA, Brilinta, Carvidelol and Lisinopril and Atorvastatin 80 mg Po Daily - Lipid panel done but will get fasting again in am - HBA1c and Vit B12 added on am labs - Will BP down to normal in the next few ays per Neurology - No MRI barin per cardiology due to recent stenting, will follow up with repeat CT head in am - Patient eating and tolerating diet well, he is also walking - Will get PT and OT to assess for any addiional needs 2. CAD s/p stent: - Positive trops likely secondary to recent MO s/p LAD MARLENE 6 days prior tro admission - Trops have trended down from 2.46 to 2.09 to 1.55 - Will continue with aspirin 81 mg daily, Brilinta 90mg twice a day, carvedilol 12.5 g twice a day and Lisinopril 10mg daily. 3. Insulin dependent diabetes mellitus - Patient on Lantus 25 U Daily will maintain on Levemir 12 units twice a day subcutaneous and Novolin sliding scale every 6 hours while he is nothing by mouth - Will hold Metformin 4. History of depression and anxiety - Will continue on Zoloft 25 mg 5. DVT prophylaxis Heparin 5000 international units 3 times a day subcutaneous 6. Diet: Heart Healthy CODE STATUS: Full code Problem List: 1. CVA (cerebral vascular accident) 2. Hypertension 3. Hyperlipidemia 4. Diabetes mellitus 5. ACS (acute coronary syndrome) Pain Ratin Pain Location: None Pain Goal: Remain pain free Pain Plan: PRN TYlenol, Vicodin and Percocet Tomorrow's Labs & Rationales: No labs needed DVT/Prophylaxis: pharmacological Consulting Request: 1 Consulting Specialty: Cardiology Consulting Physician: Dr. Maynard Reason for Consult: Recent MO now stroke Consulting Request: 2 Consulting Specialty: Neurology Consulting Physician: Dr. Rose Reason for Consult: Stroke Discharge Plan Discharge Disposition: home Stable for Discharge? No ALEX CULLEN MD 04/25/17 2112: Attending MD Review Statement Attending Statement Attending MD Statement: examined this patient, discuss w/resident/PA/BONDED STRAND OPERATOR, agreed w/resident/PA/BONDED STRAND OPERATOR, reviewed EMR data (avail) Attending Assessment/Plan: Agree with resident assessment and plan. Will continue ASA, Brillinta, Atorvastatin 80mg, follow neurology and cardiology recommendations, follow up echocardiogram, continue home medications, DVT PPx
--- NOTE | 2016-07-25 07:55 | NUR ---
PT OOB TO BR WITHOUT ASSIST. PT WALKING WITH STEADY GAIT. PT MEDICATED WITH 5 MG PRINIVIL PO.
--- NOTE | 2016-07-25 07:58 | NUR ---
MO FINE AT BEDSIDE FOR EVALUATION
--- NOTE | 2016-07-25 08:07 | Cons- Cardiology ---
General Information and HPI Consulting Request Date of Consult: 07/25/16 Requested By: ALEX CULLEN MD Reason for Consult: CVA Source of Information: patient Exam Limitations: no limitations History of Present Illness: Mr. Sebastian is 66 year old male h/o DM, HTN, dyslipidemia, depression, bicuspid AV with mild ex smoker (quit last week). He developed ACS last week. He underwent emergent catheterization 5 days ago after being found to have persistent anterior leads ST elevations. It revealed occluded LAD, 90% OM stenosis. He underwent thrombectomy and MARLENE in LAD. He developed 15 min episode of rapid PAF after stenting, converted to NSR with iv metoprolol. He is scheduled to have OM PCI next week. I saw him in our office yesterday afternoon and he reported no symptoms. Last night during dinner he developed sudden onset of slurred speech, left facial droop and left sided weakness. He was brought to [place] by his son. Allergies/Medications Allergies: Coded Allergies: No Known Allergies (07/24/16) Home Med List: Aspirin (Ecotrin*) 81 MG TABLET.DR 1 TAB PO QAM HEART/BLOOD (Reported) Atorvastatin Calcium (Lipitor) 80 MG TABLET 1 TAB PO QPM CHOLESTEROL ( Reported) Carvedilol 12.5 MG TABLET 1 TAB PO BID HEART/BP (Reported) Cholecalciferol (Vitamin D3) 1,000 UNIT TABLET 1 TAB PO QAM SUPPLEMENT ( Reported) Cyanocobalamin (Vitamin B-12) 1,000 MCG TABLET 1 TAB PO QAM SUPPLEMENT ( Reported) Insulin-Lantus (Lantus) 100 UNIT/ML VIAL 25 UNITS SC QPM DM (Reported) Lisinopril 10 MG TABLET 1 TAB PO QPM BP (Reported) Metformin HCl 1,000 MG TABLET 1 TAB PO BID DM (Reported) Multivitamin (Multi-Day Vitamins) 1 EACH TABLET 1 TAB PO QAM SUPPLEMENT ( Reported) Sertraline HCl 25 MG TABLET 1 TAB PO QAM MENTAL HEALTH (Reported) Ticagrelor (Brilinta) 90 MG TABLET 1 TAB PO BID HEART/BLOOD (Reported) Current Medications: Current Medications Sig/Krystle Start time Last Medication Dose Route Stop Time Status Admin Acetaminophen 650 MG ONCE ONE 07/24 2244 DC 07/24 PO 07/24 Acetaminophen 0 .STK-MED ONE 07/24 2238 DC PO Acetaminophen 650 MG Q6P PRN 07/24 2230 AC PO Acetaminophen/ 1 TAB Q6P PRN 07/24 2230 AC Hydrocodone Bitart PO Aspirin 0 .STK-MED ONE 07/24 2338 DC PO Aspirin 325 MG ONCE ONE 07/24 2330 CAN PO 07/24 2331 Aspirin Buffered 81 MG QAM 07/25 1000 AC PO Atorvastatin Calcium 80 MG QPM 07/25 2200 AC PO Carvedilol 12.5 MG BID 07/25 1000 AC PO Cholecalciferol 1,000 IU QAM 07/25 1000 AC PO Cyanocobalamin 1,000 MCG QAM 07/25 1000 AC PO Dextrose/Sodium 1,000 ML Q13H 07/24 2300 AC 07/24 Chloride IV 07/25 1159 2346 Insulin Detemir 12 UNITS BID 07/24 2300 AC 07/24 SC 2346 Insulin Human Regular 0 Q6 07/24 2359 AC 07/25 SC 0621 Lisinopril 5 MG ONCE ONE 07/25 0745 DC PO 07/25 0746 Lisinopril 0 .STK-MED ONE 07/25 0742 DC PO Morphine Sulfate 4 MG Q4P PRN 07/24 2230 AC IV Sertraline HCl 25 MG QAM 07/25 1000 AC PO Ticagrelor 90 MG BID 07/25 1000 AC PO Review of Systems Review of Systems: 12 point ROS negative except for HPTI Past History Travel History Traveled to [place] past 21 day No Medical History Neurological: NONE EENT: NONE Cardiovascular: hypertension, IL WITH STENT Respiratory: NONE Gastrointestinal: NONE Hepatic: NONE Renal: NONE Musculoskeletal: NONE Psychiatric: NONE Endocrine: IDDM Blood Disorders: NONE Cancer(s): NONE DIGITAL PRODUCTION ARTIST/Reproductive: NONE Surgical History Surgical History: non-contributory Psychosocial History Smoking Status: Never Smoked ETOH Use: denies use Illicit Drug Use: denies illicit drug use Exam & Diagnostic Data Vital Signs and I&O Vital Signs Date Time Temp Pulse Resp B/P B/P Pulse O2 O2 Flow FiO2 Mean Ox Delivery Rate 07/25 06 96.0 58 18 196/92 97 Nasal Cannula 07/25 201 97.0 58 20 158/77 99 Room Air 07/24 2226 96.7 60 16 155/79 98 Room Air 07/24 2120 Room Air 07/24 2036 96.6 95 22 159/78 96 Intake & Output 07/25 0807/25 0000 04/24 1600 07/24 0807/24 0000 07/23 1600 Intake Total Output Total 275 Balance -275 Output, Urine 275 Patient 218 lb 218 lb Weight Weight Reported by Patient Measurement Method Physical Exam: HEENT-PERRLA, left facial droop-mild Neck-JVP normal, bilateral carotid bruit Lungs-clear bilaterally Heart-S1, S2, 2/6 SIERRA at the base Abdomen-soft, not tender, not distended, BS+, no organomegaly, no masses Ext-no edema, 2+ pulses, no cyanosis Neuro-motor strenght 5/5 bilaterally speech mildly slurred with mild left facial droop Labs/Bryce Results: Laboratory Tests 07/25 Chemistry Sodium (137 - 145 mmol/L) 140 135 L Potassium (3.5 - 5.1 mmol/L) 3.7 3.9 Chloride (98 - 107 mmol/L) 104 100 Carbon Dioxide (22 - 30 mmol/L) 25 23 Anion Gap (5 - 16) 11 12 BUN (9 - 20 mg/dL) 16 21 H Creatinine (0.7 - 1.2 mg/dL) 0.8 1.0 Estimated GFR (>60 ml/min) > 60 > 60 BUN/Creatinine Ratio (7 - 25 %) 20.0 21.0 Glucose (65 - 99 mg/dL) 244 H Calcium (8.4 - 10.2 mg/dL) 9.1 Total Bilirubin (0.2 - 1.3 mg/dL) 0.5 AST (17 - 59 U/L) 26 ALT (21 - 72 U/L) 45 Alkaline Phosphatase (< 127 U/L) 85 Troponin I (<0.11 ng/ml) 2.09 *H 2.46 *H Total Protein (6.3 - 8.2 g/dL) 6.0 L Albumin (3.5 - 5.0 g/dL) 3.5 Globulin (1.9 - 4.2 gm/dL) 2.5 Albumin/Globulin Ratio (1.1 - 2.2 %) 1.4 Triglycerides (<150 mg/dL) 98 Cholesterol (< 200 MG/DL) 111 LDL Cholesterol, Calc (65 - 129 mg/dL) 56 L HDL Cholesterol (40 - 60 mg/dL) 36 L Cholesterol/HDL Ratio (0.00 - 4.88 %) 3 Coagulation PT (9.4 - 12.5 SEC) 11.3 INR (0.90 - 1.17) 1.08 APTT (25 - 37 SEC) 28 Hematology CBC w Diff NO MAN DIFF REQ NO MAN DIFF REQ WBC (4.8 - 10.8 /CUMM) 6.9 7.8 RBC (4.70 - 6.10 /CUMM) 4.12 L 4.23 L Hgb (14.0 - 18.0 G/DL) 12.7 L 12.9 L Hct (42 - 52 %) 38.5 L 39.4 L MCV (80.0 - 94.0 FL) 93.4 93.2 MCH (27.0 - 31.0 PG) 30.8 30.4 RDW (11.5 - 14.5 %) 12.8 12.5 Plt Count (130 - 400 /CUMM) 199 214 MPV (7.4 - 10.4 FL) 9.5 9.7 Gran % (42.2 - 75.2 %) 52.5 62.7 Lymphocytes % (20.5 - 51.1 %) 27.4 21.4 Monocytes % (1.7 - 9.3 %) 10.3 H 9.0 Eosinophils % (0 - 5 %) 8.7 H 6.0 H Basophils % (0.0 - 2.0 %) 1.1 0.9 Absolute Granulocytes (1.4 - 6.5 /CUMM) 3.6 4.9 Absolute Lymphocytes (1.2 - 3.4 /CUMM) 1.9 1.7 Absolute Monocytes (0.10 - 0.60 /CUMM) 0.7 H 0.7 H Absolute Eosinophils (0.0 - 0.7 /CUMM) 0.6 0.5 Absolute Basophils (0.0 - 0.2 /CUMM) 0.1 0.1 PUBS MCHC (33.0 - 37.0 G/DL) 32.9 L 32.6 L Diagnostic Data EKG Results SR, 62 bpm, recent anterior wall IL with persistent anterior ST elevations, old inferior IL, no change CXR Results noted Other Results CT head-no acute intracranial abnormality Assessment/Plan Assessment/Plan 66 year old male h/o HTN, dyslipidemia, DM, bicuspid AV with mild , s/p LAD MARLENE 6 days ago, brief episode of PAF post stenting presents with right MCA stroke, now with improving symptoms. Ekg shows persistent anterior ST elevations , troponin mildly elevated-residual elevation from recent IL. Etiology of stroke could be from aortic atherosclerosis, cardioembolic (PAF), need to r/o carotid stenosis. He has bilateral bruit which could be due to stenosis or referred from . Plan: admit to telemetry echo carotid US no MRI for 4-6 weeks after stenting repeat CT head tomorrow neurology consult continue pre admission meds including stating, carvedilol, lisinopril, ASA, Brilinta PT/OT I will likely add low dose rivaroxaban in 4 weeks in addition to dual antiplatelet therapy as per P[facility] AF-PCI trial. Consult Acknowledgment - Thank you for your consult request.
--- NOTE | 2016-07-25 08:15 | NUR ---
Physical Therapy. PT consult received and chart reviewed. Pt here w/ TIA, initially presenting w/ L sided weakness, which has now resolved. Nursing ambulated pt and reports he ambulated with steady gait without difficulty. No skilled acute PT needs at this time. PT will not follow.
[2016-07-25 08:38] VITALS: BP 185/88
--- NOTE | 2016-07-25 09:21 | NUR ---
HEART HEALTHY TRAY ORDERED FOR PT AT THIS TIME
--- NOTE | 2016-07-25 09:55 | NUR ---
PT GIVEN MORNING MEDS DOCUMENTED. FS 97. LEVEMIR ORDERED BID FOR PT WHO STATES HE DOESN'T TAKE IT AT HOME. MD HASSAN PAGED TO VERIFY
--- NOTE | 2016-07-25 10:05 | NUR ---
SPEECH THERAPY AT BEDSIDE
--- NOTE | 2016-07-25 10:11 | NUR ---
NEUROLOGIST AT BEDSIDE
--- NOTE | 2016-07-25 10:23 | NUR ---
OF PT AT BEDSIDE
--- NOTE | 2016-07-25 10:43 | NUR ---
PT OOB TO BR WITH STEADY GAIT
--- NOTE | 2016-07-25 10:52 | Cons- Neurology ---
General Information and HPI Consulting Request Date of Consult: 07/25/16 Requested By: ALEX CULLEN MD Reason for Consult: left hemiparesis and dysarthria Source of Information: patient, family, old records Exam Limitations: no limitations History of Present Illness: This is a very pleasant 66-year-old male who presented to the hospital yesterday at around 8:30 to developing sudden left sided weakness, left lower facial droop, and dysarthria. He was first unaware that he had developed the weakness on the left side of the body until his did it out to him. They didn't came immediately to the emergency room within half an hour. However by that time symptoms have almost completely resolved. As therefore not given TPA. Of note is that asked week he had developed this pain was found to have had an NV. He later had catheterization and angioplasty. He reports that the echo revealed no minimal all abnormalities. He is currently on aspirin and present for that. He was a smoker up to 1 week ago. As an extensive family history of strokes in his parents and siblings. Allergies/Medications Allergies: Coded Allergies: No Known Allergies (07/24/16) Home Med List: Aspirin (Ecotrin*) 81 MG TABLET.DR 1 TAB PO QAM HEART/BLOOD (Reported) Atorvastatin Calcium (Lipitor) 80 MG TABLET 1 TAB PO QPM CHOLESTEROL ( Reported) Carvedilol 12.5 MG TABLET 1 TAB PO BID HEART/BP (Reported) Cholecalciferol (Vitamin D3) 1,000 UNIT TABLET 1 TAB PO QAM SUPPLEMENT ( Reported) Cyanocobalamin (Vitamin B-12) 1,000 MCG TABLET 1 TAB PO QAM SUPPLEMENT ( Reported) Insulin-Lantus (Lantus) 100 UNIT/ML VIAL 25 UNITS SC QPM DM (Reported) Lisinopril 10 MG TABLET 1 TAB PO QPM BP (Reported) Metformin HCl 1,000 MG TABLET 1 TAB PO BID DM (Reported) Multivitamin (Multi-Day Vitamins) 1 EACH TABLET 1 TAB PO QAM SUPPLEMENT ( Reported) Sertraline HCl 25 MG TABLET 1 TAB PO QAM MENTAL HEALTH (Reported) Ticagrelor (Brilinta) 90 MG TABLET 1 TAB PO BID HEART/BLOOD (Reported) Current Medications: Current Medications Sig/Krystle Start time Last Medication Dose Route Stop Time Status Admin Acetaminophen 650 MG ONCE ONE 07/24 2244 DC 07/24 PO 04/24 2246 2237 Acetaminophen 0 .STK-MED ONE 07/24 2239 DC PO Acetaminophen 650 MG Q6P PRN 07/24 2230 AC PO Acetaminophen/ 1 TAB Q6P PRN 07/24 2230 AC Hydrocodone Bitart PO Aspirin 0 .STK-MED ONE 07/24 2338 DC PO Aspirin 325 MG ONCE ONE 07/24 2330 CAN PO 07/24 2331 Aspirin Buffered 81 MG QAM 07/25 1000 AC 07/25 PO 1004 Atorvastatin Calcium 80 MG QPM 07/25 2200 AC PO Carvedilol 12.5 MG BID 07/25 1000 AC 07/25 PO 1004 Cholecalciferol 1,000 IU QAM 07/25 1000 AC 07/25 PO 1004 Cyanocobalamin 1,000 MCG QAM 07/25 1000 AC 07/25 PO 1004 Dextrose/Sodium 1,000 ML Q13H 07/24 2300 DC 07/24 Chloride IV 07/25 1159 2346 Insulin Detemir 12 UNITS BID 07/24 2300 AC 07/25 SC 1004 Insulin Human Regular 0 Q6 07/24 2359 AC 07/25 SC 0621 Lisinopril 5 MG ONCE ONE 07/25 0745 DC 07/25 PO 07/25 0746 0755 Lisinopril 0 .STK-MED ONE 07/25 0742 DC PO Morphine Sulfate 4 MG Q4P PRN 07/24 223 AC IV Sertraline HCl 25 MG QAM 07/25 1000 AC 07/25 PO 1004 Ticagrelor 90 MG BID 07/25 1000 AC 07/25 PO 1004 Review of Systems Review of Systems: As per HPI otherwise negative to the 10 point complete review of systems Past History Travel History Traveled to [place] past 21 day No Medical History Neurological: NONE EENT: NONE Cardiovascular: hypertension, NV WITH STENT Respiratory: NONE Gastrointestinal: NONE Hepatic: NONE Renal: NONE Musculoskeletal: NONE Psychiatric: NONE Endocrine: IDDM Blood Disorders: NONE Cancer(s): NONE SYSTEMS DEVELOPMENT CONSULTANT/Reproductive: NONE Surgical History Surgical History: non-contributory Psychosocial History Smoking Status: Never Smoked ETOH Use: denies use Illicit Drug Use: denies illicit drug use Exam & Diagnostic Data Vital Signs and I&O Vital Signs Date Time Temp Pulse Resp B/P B/P Pulse O2 O2 Flow FiO2 Mean Ox Delivery Rate 07/25 1004 98.0 61 20 174/90 07/25 0838 98.0 61 20 185/88 98 Room Air 07/25 0755 97.4 66 20 180/98 07/25 0605 96.0 58 18 196/92 97 Nasal Cannula 07/25 0202 97.0 58 20 158/77 99 Room Air 07/24 2227 96.7 60 16 155/79 98 Room Air 07/241 Room Air 07/24 2036 96.6 95 22 159/78 96 Intake & Output 07/25 1600 07/25 0800 07/25 0000 Intake Total Output Total 275 Balance -275 Output, Urine 275 Patient 218 lb 218 lb Weight Weight Reported by Patient Measurement Method Physical Exam: General: The patient is in no distress. Pleasant and cooperative. MSE: Alert and oriented 3. Good attention and concentration. Good short-term memory and fund of knowledge reflected through our conversation. Language is fluent with good comprehension and repetition. Cardiovascular: S1 and S2 are normal, regular rate and rhythm, and normal pedal pulses. Vision: Visual rausch are intact. Neurological: Extra ocular movements intact, NOY, mild lower facial droop, tongue midline, uvula raises equally in the midline, V1-V3 sensation to touch is intact and equal bilaterallty, sternocleidomastoid and trapezius are strong on both sides, muscles of mastication are strong. No dysarthria noted. Motor exam reveals no abnormality of strength. Power is 5-5 throughout the distribution distally and proximally. Sensory exam did not reveal any deficits to touch, temperature, vibration and proprioception. Reflexes are symmetric bilaterally. Cerebellar exam does not reveal any dysmetria. Rapid alternating movements are intact bilaterally. Gait is steady with normal base. Last 48 Hours of Lab Results: Laboratory Tests 07/25 Chemistry Sodium (137 - 145 mmol/L) 140 135 L Potassium (3.5 - 5.1 mmol/L) 3.7 3.9 Chloride (98 - 107 mmol/L) 104 100 Carbon Dioxide (22 - 30 mmol/L) 25 23 Anion Gap (5 - 16) 11 12 BUN (9 - 20 mg/dL) 16 21 H Creatinine (0.7 - 1.2 mg/dL) 0.8 1.0 Estimated GFR (>60 ml/min) > 60 > 60 BUN/Creatinine Ratio (7 - 25 %) 20.0 21.0 Glucose (65 - 99 mg/dL) 244 H Calcium (8.4 - 10.2 mg/dL) 9.1 Total Bilirubin (0.2 - 1.3 mg/dL) 0.5 AST (17 - 59 U/L) 26 ALT (21 - 72 U/L) 45 Alkaline Phosphatase (< 127 U/L) 85 Troponin I (<0.11 ng/ml) 2.09 *H 2.46 *H Total Protein (6.3 - 8.2 g/dL) 6.0 L Albumin (3.5 - 5.0 g/dL) 3.5 Globulin (1.9 - 4.2 gm/dL) 2.5 Albumin/Globulin Ratio (1.1 - 2.2 %) 1.4 Triglycerides (<150 mg/dL) 98 Cholesterol (< 200 MG/DL) 111 LDL Cholesterol, Calc (65 - 129 mg/dL) 56 L HDL Cholesterol (40 - 60 mg/dL) 36 L Cholesterol/HDL Ratio (0.00 - 4.88 %) 3 Coagulation PT (9.4 - 12.5 SEC) 11.3 INR (0.90 - 1.17) 1.08 APTT (25 - 37 SEC) 28 Hematology CBC w Diff NO MAN DIFF REQ NO MAN DIFF REQ WBC (4.8 - 10.8 /CUMM) 6.9 7.8 RBC (4.70 - 6.10 /CUMM) 4.12 L 4.23 L Hgb (14.0 - 18.0 G/DL) 12.7 L 12.9 L Hct (42 - 52 %) 38.5 L 39.4 L MCV (80.0 - 94.0 FL) 93.4 93.2 MCH (27.0 - 31.0 PG) 30.8 30.4 RDW (11.5 - 14.5 %) 12.8 12.5 Plt Count (130 - 400 /CUMM) 199 214 MPV (7.4 - 10.4 FL) 9.5 9.7 Gran % (42.2 - 75.2 %) 52.5 62.7 Lymphocytes % (20.5 - 51.1 %) 27.4 21.4 Monocytes % (1.7 - 9.3 %) 10.3 H 9.0 Eosinophils % (0 - 5 %) 8.7 H 6.0 H Basophils % (0.0 - 2.0 %) 1.1 0.9 Absolute Granulocytes (1.4 - 6.5 /CUMM) 3.6 4.9 Absolute Lymphocytes (1.2 - 3.4 /CUMM) 1.9 1.7 Absolute Monocytes (0.10 - 0.60 /CUMM) 0.7 H 0.7 H Absolute Eosinophils (0.0 - 0.7 /CUMM) 0.6 0.5 Absolute Basophils (0.0 - 0.2 /CUMM) 0.1 0.1 PUBS MCHC (33.0 - 37.0 G/DL) 32.9 L 32.6 L Imaging/Other Studies: NCHCT FINDINGS: There is no evidence of acute intracranial hemorrhage or acute territorial infarction. No abnormal mass effect or midline shift is seen. [place] to white matter differentiation is well preserved. No extra-axial fluid collections are identified. There are old small lacunar infarcts versus prominent perivascular space in the left basal ganglia. There is atrophy with prominence of the ventricles and the sulci and hypodensity of the periventricular white matter due to chronic small vessel ischemic disease. There is vascular calcifications of the internal carotid arteries bilaterally. The osseous structures and soft tissues are normal. The mastoid air cells and visualized portions of the paranasal sinuses are well aerated. Assessment/Plan Assessment: This is a 66-year-old male presents with an acute likely lacunar stroke that resolved quickly. It seems on noncontrast head CT at he has had previous lacunar infarctions. He has cardiovascular risk factors and in fact has just experienced his first heart attack last week. Recommendations: 1. Continue with aspirin and [place] of for now. 2. Increase Lipitor to 80 mg by mouth daily at bedtime. 3. Increase lisinopril to 10 mg by mouth daily and titrate up as needed to control blood pressure the next few days. 4. Repeat echocardiogram to rule out a thrombus. Obtain carotid duplex. 5. DVT prophylaxis with heparin subcutaneous. 6. PT OT and speech evaluation. 7. Check fasting lipids and hemoglobin A1c. Check B12 levels. Consult Acknowledgment - Thank you for your consult request.
--- NOTE | 2016-07-25 11:13 | NUR ---
REPORT RECIEVED, AWAITING DISTRIBUTION FOR TRANSPORT TO FLOOR, PT EATING LUNCH AND HAS NO SYMPTOMS/COMPLAINTS AT THIS TIME.
[2016-07-25] MEDS ORDERED: XARELTO10 M1 PO (12:03)
[2016-07-25 12:06] VITALS: BP 134/68
--- NOTE | 2016-07-25 14:15 | Patient Discharge Instructions ---
Discharge Instructions General Discharge Information You were seen/treated for: Stroke Special Instructions: 1. Follow up with your heart doctor, Dr. Maynard after discharge. 2. Rivaroxaban needs to be started in 4 weeks in addition to dual antiplatelet therapy - please follow up with Dr. Maynard 3. Follow up with Dr. Rose after discharge 4. Follow up with your PCP, Nayely Curtis in a week after discharge 5. Please follow up with vascular surgeon within one week after discharge. Diet Continue normal diet: Yes Activity Full Activity/No Limits: Yes Acute Coronary Syndrome Inclusion Criteria At DC or during hospital stay patient has or had the following: ACS DIAGNOSIS No Discharge Core Measures Meds if any: Prescribed or Continued at Discharge Meds if any: NOT Prescribed or Continued at Discharge Congestive Heart Failure Inclusion Criteria At DC or during hospital stay patient has or had the following: CHF DIAGNOSIS No Discharge Core Measures Meds if any: Prescribed or Continued at Discharge Meds if any: NOT Prescribed or Continued at Discharge Cerebrovascular accident Inclusion Criteria At DC or during hospital stay patient has or had the following: CVA/TIA Diagnosis Yes Discharge Core Measures Meds if any: Prescribed or Continued at Discharge Antithrombotic Yes Statin (required if LDL =>70) Yes Anticoagulant Yes (in 4 weeks) Meds if any: NOT Prescribed or Continued at Discharge Venous thromboembolism Inclusion Criteria VTE Diagnosis No VTE Type NONE VTE Confirmed by (Test) NONE Discharge Core Measures - Per Current guidelines, there needs to be overlap - treatment for the first 5 days of Warfarin therapy. - If discharged on Warfarin prior to 5 days of - overlap therapy, the patient will need to be - assessed for post discharge needs including - *Post discharge parental anticoagulation - *Warfarin and/or parental anticoagulation education - *Follow up date to check INR post discharge At least 5 days overlap therapy as Inpatient No Meds if any: Prescribed or Continued at Discharge Note: Overlap Therapy is Warfarin and Anticoagulant Meds if any: NOT Prescribed or Continued at Discharge
--- NOTE | 2016-07-25 14:16 | Discharge Summary ---
Visit Information Visit Dates Admission Date: 07/24/16 Discharge Date: 07/27/2016 Hospital Course Course Attending Physician: ALEX CULLEN MD Primary Care Physician: NAYELY CURTIS MD, I Consulting Request: 1 Consulting Specialty: Neurology Consulting Physician: Dr. Rose Reason for Consult: Stroke Consulting Request: 2 Consulting Specialty: Cardiology Consulting Physician: Dr. Maynard Reason for Consult: Recent NM and now stroke Hospital Course: 66-year-old male with a past medical history of coronary artery disease status post PCI this past Sunday, not insulin-dependent diabetes mellitus, depression presented to the ER with chief complaint of left-sided weakness, facial droop and some slurriness of speech. According to the patient and the family, Mr. Sebastian was in his usual state of health having dinner earlier this evening when he is suddenly experienced left- sided weakness with facial droop., Drooling of saliva and left upper extremity weakness. Of note he was started to slouch on his left side. Patient denies any chest pain, palpitations, should seizure-like activity, eye rolling, loss of consciousness, headache prior to the event occurring. Of note. He was unable to recollect whether his lower extremity was weak because he was sitting in a chair. He denies any blurry vision however does endorse clearness of speech. Of note he recently underwent a cardiac cath at [address] and had a drug- eluting stent placed in his LAD. He's been compliant with his medications since. He followed up with Dr. Maynard was his primary missile control pilot earlier this morning and everything was reportedly normal according to him. Of note patient is a smoker and quit smoking about 2 weeks ago when he had a cardiac cath. He smokes 1-2 cigarettes and has been doing that for over 50 years now. He denies any allergies and states that there is a history of stroke in both of his parents were more than 70 years of age. Vitals at time of admission blood pressure 159/78, respiratory rate 22, pulse 95 , afebrile saturating 96% on room air. On physical exam, he is alert and oriented 3 sitting comfortably in bed. HEENT revealed PERRLA, moist mucous membranes. Examination of the neck did not reveal any elevated JVD, cervical lymphadenopathy or carotid bruit. Cardiovascular exam pertinent for normal S1, S2, grade 3 x 6 systolic murmur heard best at right sternal border no rubs or gallops appreciated. Respiratory exam was unremarkable with chest clear to auscultation bilaterally. Abdominal exam was benign with abdomen soft, nontender, nondistended with normal bowel sounds in all 4 quadrants. Neuro exam pertinent for cranial nerve II-, VIII-XII grossly intact, with some mild facial drooping on the left side strength 5 out of 5 in all 4 extremities, downgoing plantars bilaterally, normal tone, 2+ reflexes in all 4 extremities. Labs pertinent for any change of 12.9/39.4, white blood cell count of 2 7800, platelet count of 214,000. Serum chemistries revealed a sodium of 135, potassium of 3.9, bicarbonate 23, anion gap 12, BUN 21 and creatinine 1.0. Serum glucose elevated to 244. LFTs unremarkable with an AST/active 26/45, total bili of 0.5 alkaline phosphatase of 85 with first set of troponin elevated at 2.46. INR was 1.08. Chest x-ray revealed no evidence of heart failure effusion, minimal density at right base questionable atelectasis versus infiltrate, mild cephalization of the vasculature. Head CT showed no acute intracranial pathology. EKG revealed Normal sinus rhythm with a heart rate of 71, normal axis, poor R- wave progression, Q waves in lateral leads. 1. Transient ischemic attack Patient with left arm weakness, slurred speech and left facil droop, the latter two resolved already, droop persists. TPA was not administered given high risk of bleeding, and resolution of symtpoms. Cardiology and Neuro were on board. Continued ASA and Bralinta. Cardio advised to start Xarelto in 4 weeks. Patient was started on high-dose statin. CAROTID-VERTEBRAL DOPPLER IMPRESSION: 1. RIGHT: Hemodynamically significant stenosis of the proximal right internal carotid artery corresponding to a 50-79% stenosis by velocity criteria. 2. LEFT: Minimal, nonhemodynamically significant stenosis of the proximal left internal carotid artery corresponding to a 0-49% stenosis by velocity criteria. 3. No evidence for hemodynamically significant stenosis in the external carotid arteries. ECHOCARDIOGRAM CONCLUSIONS Mildly reduced left ventricular systolic function with visually estimated ejection fraction of 45-50%. [place], distal anterior septum, distal anterior wall is akinetic. Moderate concentric left ventricular hypertrophy. Mitral annular calcification with mild mitral regurgitation. Mild aortic stenois. For ultrasound-carotid vascular was consulted. According to their recommendations there was no need for acute intervention and he could follow-up with them after discharge to monitor his carotid stenosis. Cardio recommended to wait for 5 weeks (6 weeks after acute NM) for right carotid endartectomy. Patient did not have any new neuro deficit. CT NECK ANGIOGRAM IMPRESSION: Heavily calcified atheromatous plaque causes 35% stenosis of the right internal carotid artery at its origin. There also appears to be an ulceration involving the lipid-laden component of the plaque as described above. Limited visualization of the intracranial vessels demonstrates a thrombus near the origin of a right middle cerebral artery branch that coincides with the ischemic changes within the right middle cerebral artery territory. The remainder of the CT angiogram of the neck is unremarkable. Head CT was repeated as patient was not able to get MRI due to recent stent placement. CT HEAD WO IV CONTRAST IMPRESSION: There is an evolving infarct within the right middle cerebral artery territory involving the right frontal operculum and insular cortex. No evidence of hemorrhagic transformation. Patient was completely asymptomatic. No new neuro deficits. His Coreg was held on discharge as patient was persistently bradycardic (but asymptomatic). Can be restarted as an outpatient by cardiology if appropriate. He will follow up as outpatient with cardiology and vascular surgery for eventual carotid endartectomy. 2. CAD s/p stent: He had Positive trops likely secondary to recent NM s/p LAD MARLENE 6 days prior tro admission. Trops trended down from 2.46 to 2.09 to 1.55. Continued with aspirin 81 mg daily, Brilinta 90mg twice a day, carvedilol 12.5 g twice a day and Lisinopril 10mg daily. 3. Insulin dependent diabetes mellitus Patient was maintained on Levemir 12 units twice a day subcutaneous and Novolin sliding scale. held Metformin while inpatient. 4. History of depression and anxiety Continued on Zoloft 25 mg. Allergies: Coded Allergies: No Known Allergies (07/24/16) Disposition Summary Disposition Principal Diagnosis: 1. Stroke 2. Recent NM Additional Diagnosis: Hypertension IDDM Discharge Disposition: home health services Discharge Instructions General Discharge Information Code Status: Full Code Patient's Diet: Heart Healthy Patient's Activity: As Tolerated Follow-Up Instructions/Appts: 1. Follow up with your heart doctor, Dr. Maynard after discharge. 2. Rivaroxaban needs to be started in 6 weeks from the day of NM/PCI, in addition to dual antiplatelet therapy - please follow up with Dr. Maynard 3. Follow up with Dr. Rose after discharge 4. Follow up with your PCP, Nayely Curtis in a week after discharge Medications at Discharge Discharge Medications: Stop taking the following medications: Carvedilol (Carvedilol) 12.5 MG TABLET ORAL TWICE DAILY Qty = 60 Continue taking these medications: Lisinopril (Lisinopril) 10 MG TABLET 1 Tablet ORAL Every night Qty = 90 Ticagrelor (Brilinta) 90 MG TABLET 1 Tablet ORAL TWICE DAILY Qty = 60 Comments: Last Taken:07/27/16 Time:1000 Sertraline HCl (Sertraline HCl) 25 MG TABLET 1 Tablet ORAL Every Morning Qty = 30 Comments: Last Taken:07/27/16 Time:1000 Atorvastatin Calcium (Lipitor) 80 MG TABLET 1 Tablet ORAL Every night Qty = 90 Comments: Last Taken:07/26/16 Time:5PM Aspirin (Ecotrin*) 81 MG TABLET. 1 Tablet ORAL Every Morning Comments: Last Taken:07/27/16 Time:1000 Cholecalciferol (Vitamin D3) 1,000 UNIT TABLET 1 Tablet ORAL Every Morning Comments: Last Taken:07/28/15 Time:1000 Insulin-Lantus (Lantus) 100 UNIT/ML VIAL 25 Units Inject into fatty tissue Every night Qty = 10 Metformin HCl (Metformin HCl) 1,000 MG TABLET 1 Tablet ORAL TWICE DAILY Qty = 60 Multivitamin (Multi-Day Vitamins) 1 EACH TABLET 1 Tablet ORAL Every Morning Cyanocobalamin (Vitamin B-12) 1,000 MCG TABLET 1 Tablet ORAL Every Morning Comments: Last Taken:07/27/16 Time:1000 Copies To: SUBHASH FINE,ALEX; MARCO FINE,ASHVIN; KAY FINE,JAYY DAVIS MD
--- NOTE | 2016-07-25 14:45 | ULTRASOUND REPORT ---
EXAMINATION: DUPLEX BILATERAL CAROTID ULTRASOUND CLINICAL INFORMATION: TIA. Left weakness and facial droop.. COMPARISON: None. TECHNIQUE: Real-time ultrasound and Doppler techniques (integrating B-mode 2D vascular images, Doppler spectral analysis and color flow Doppler imaging) were utilized to interrogate the extracranial carotid and vertebral arteries bilaterally. The degree of stenosis determined by criteria similar to NASCET. FINDINGS: Right side: 1. Moderate amount of plaque is seen in the ECA/ICA region. 2. The common carotid artery velocity is 79 cm/s. 3. The internal carotid artery velocities are 156 cm/s systolic and 34 cm/s diastolic. 4. The external carotid artery velocity is 131 cm/s. Left side: 1. Mild amount of plaque is seen in the ECA/ICA region. 2. The common carotid artery velocity is 126 cm/s. 3. The internal carotid artery velocities are 78 cm/s systolic and 19 cm/s diastolic. 4. The external carotid artery velocity is 112 cm/s. ADDITIONAL FINDINGS: 1. The vertebral arteries show antegrade flow. IMPRESSION: 1. RIGHT: Hemodynamically significant stenosis of the proximal right internal carotid artery corresponding to a 50-79% stenosis by velocity criteria. 2. LEFT: Minimal, nonhemodynamically significant stenosis of the proximal left internal carotid artery corresponding to a 0-49% stenosis by velocity criteria. 3. No evidence for hemodynamically significant stenosis in the external carotid arteries.
[2016-07-25 16:17] VITALS: BP 128/78
--- NOTE | 2016-07-25 21:39 | ECHOCARDIOGRAM REPORT ---
MYLES BOUCHER Age: 66 : 1950 Gender: M Exam Date: 07/25/2016 18:43 Exam Location: [address] [facility] Ht (in): 74 Wt (lb): 218 BSA: 2.29 BP: 128 / 78 Ordering Physician: LAUREL HENDRICKSON MD Referring Physician: Uday Maynard M.D. Technologist: Kendal Nelson [facility] Room Number: [id number] Indications: STROKE Rhythm: Sinus Technical Quality: FINDINGS Left Ventricle Normal size left ventricle. Left ventricular wall thickness moderately increased. Mildly abnormal left ventricular ejection fraction estimated at 45-50%. Grady, distal anterior septum, distal anterior wall is akinetic Right Ventricle Normal right ventricular size and function. Right Atrium Normal right atrial size. Left Atrium Normal left atrial size. Mitral Valve Moderate mitral annular calcification. Mild mitral regurgitation. Aortic Valve Diffuse thickening of the aortic valve cusps with reduced excursion. Mild aortic stenosis. Tricuspid Valve Structurally normal tricuspid valve. Trace tricuspid regurgitation. Pulmonic Valve Structurally normal pulmonic valve. Pericardium No pericardial effusion. Great Vessels Normal size aortic root. CONCLUSIONS Mildly reduced left ventricular systolic function with visually estimated ejection fraction of 45-50%. Grady, distal anterior septum, distal anterior wall is akinetic. Moderate concentric left ventricular hypertrophy. Mitral annular calcification with mild mitral regurgitation. Mild aortic stenois. Uday Maynard M.D. (Electronically Signed) Final Date: 25 July 2016 21:39 MEASUREMENTS (Male / Female) Normal Values 2D ECHO LV Diastolic Diameter PLAX 4.5 cm 4.2 - 5.9 / 3.9 - 5.3 cm LV Systolic Diameter PLAX 2.6 cm 2.1 - 4.0 cm LV Fractional Shortening PLAX 42.2 % 25 - 46 % LV Ejection Fraction 2D Teich 73.4 % IVS Diastolic Thickness 1.6 cm LVPW Diastolic Thickness 1.6 cm LV Relative Wall Thickness 0.7 RV Internal Dim ED PLAX 2.7 cm 1.9 - 3.8 cm LVOT Diameter 1.8 cm Aortic Root Diameter 3.1 cm LA Systolic Diameter LX 4.0 cm 3.0 - 4.0 / 2.7 - 3.8 cm LA Volume 64.0 cm 18 - 58 / 22 - 52 cm Ascending Aorta Diameter 3.3 cm DOPPLER AV Peak Velocity 265.0 cm/s AV Peak Gradient 28.1 mmHg AV Mean Velocity 189.0 cm/s AV Mean Gradient 16.0 mmHg AV Velocity Time Integral 56.5 cm LVOT Peak Velocity 112.0 cm/s LVOT Peak Gradient 5.0 mmHg LVOT Mean Velocity 85.7 cm/s LVOT Mean Gradient 3.0 mmHg LVOT Velocity Time Integral 26.7 cm LVOT Stroke Volume 67.9 cm AV Area Cont Eq vti 1.2 cm AV Area Cont Eq pk 1.1 cm MV Peak Velocity 152.0 cm/s MV Peak Gradient 9.2 mmHg MV Mean Velocity 77.1 cm/s MV Mean Gradient 3.0 mmHg Mitral E Point Velocity 99.7 cm/s Mitral A Point Velocity 143.0 cm/s Mitral E to A Ratio 0.7 MV PHT Velocity 154.0 cm/s MV Deceleration Coleman 468.0 cm/s MV Pressure Half Time 98.7 ms MV Area PHT 2.2 cm MV Deceleration Time 331.0 ms PV Peak Velocity 84.7 cm/s PV Peak Gradient 2.9 mmHg PV Mean Velocity 64.2 cm/s PV Mean Gradient 2.0 mmHg PV Velocity Time Integral 19.2 cm LV E' Lateral Velocity 4.6 cm/s Mitral E to LV E' Lateral Ratio 21.8 LV E' Septal Velocity 6.7 cm/s Mitral E to LV E' Septal Ratio 14.8
[2016-07-25 22:00] VITALS: BP 160/80
--- NOTE | 2016-07-26 07:31 | PN- Cardiology ---
Subjective Subjective: No new complaints, neuro symptoms resolved Objective Vital Signs and I&Os Vital Signs Date Time Temp Pulse Resp B/P B/P Pulse O2 O2 Flow FiO2 Mean Ox Delivery Rate 07/25 220 98.8 64 20 160/80 97 Room Air 07/25 2151 62 160/80 07/25 1617 98.1 65 20 128/78 98 Room Air 07/25 1206 97.9 60 20 134/68 96 Room Air 07/25 1113 97.8 94 18 170/76 98 Room Air 07/25 1004 98.0 61 20 174/90 07/25 0838 98.0 61 20 185/88 98 Room Air 07/25 0755 97.4 66 20 180/98 Intake & Output 07/26 0807/26 0000 07/25 1600 07/25 0807/25 0000 07/24 1600 Intake Total 100 400 Output Total 950 275 Balance 100 -550 -275 Intake, Oral 100 400 Output, Urine 950 275 Patient 218 lb 218 lb Weight Weight Reported by Patient Measurement Method Physical Exam: HEENT-PERRLA Neck-JVP normal, bilateral bruits Lungs-CTA bilaterally Heart S1S2, 2/6 SIERRA at the base Abdomen-soft, not tender, no organomegaly, no masses Extr-no edema, 2+ pulses, no cyanosis neuro-non focal, facial droop improved, speech improved Current Medications: Current Medications Sig/Krystle Start time Last Medication Dose Route Stop Time Status Admin Acetaminophen 650 MG Q6P PRN 07/240 AC PO Acetaminophen/ 1 TAB Q6P PRN 07/24 2230 AC Hydrocodone Bitart PO Aspirin Buffered 81 MG QAM 07/25 1000 AC 07/25 PO 1004 Atorvastatin Calcium 80 MG QPM 07/25 2200 AC 07/25 PO 2204 Carvedilol 12.5 MG BID 07/25 1000 AC 07/25 PO 1004 Cholecalciferol 1,000 IU QAM 07/25 1000 AC 07/25 PO 1004 Cyanocobalamin 1,000 MCG QAM 07/25 1000 AC 07/25 PO 1004 Dextrose/Sodium 1,000 ML Q13H 07/24 2300 DC 07/24 Chloride IV 07/25 1159 2346 Heparin Sodium 5,000 UNIT Q8 07/25 1400 AC 07/26 (Porcine) SC 0600 Insulin Aspart 0 TIDAC 07/25 1700 AC SC Insulin Detemir 12 UNITS BID 07/24 2300 AC 07/25 SC 2143 Insulin Human Regular 0 Q6 07/24 2359 DC 07/25 SC 0621 Lisinopril 10 MG DAILY 07/26 1000 AC PO Lisinopril 5 MG ONCE ONE 07/25 1200 CAN PO 07/25 1201 Lisinopril 5 MG ONCE ONE 07/25 0745 DC 07/25 PO 07/25 0746 0755 Lisinopril 0 .STK-MED ONE 07/25 0742 DC PO Morphine Sulfate 4 MG Q4P PRN 07/24 2230 AC IV Sertraline HCl 25 MG QAM 07/25 1000 AC 07/25 PO 1004 Ticagrelor 90 MG BID 07/25 1000 AC 07/25 PO 2147 Results Last 48 Hrs of Labs/Mics: Laboratory Tests 07/26/16 0620: Triglycerides Pending, Cholesterol Pending, LDL Cholesterol, Calc Pending, HDL Cholesterol Pending, Cholesterol/HDL Ratio Pending 07/25/16 1240: Troponin I 1.55 *H 07/25/16 0621: Anion Gap 11, Estimated GFR > 60, BUN/Creatinine Ratio 20.0, Hemoglobin A1c 8.1 H, Troponin I 2.09 *H, Triglycerides 98, Cholesterol 111, LDL Cholesterol, Calc 56 L, HDL Cholesterol 36 L, Cholesterol/HDL Ratio 3, Vitamin B12 927, CBC w Diff NO MAN DIFF REQ, RBC 4.12 L, MCV 93.4, MCH 30.8, RDW 12.8, MPV 9.5, Gran % 52.5, Lymphocytes % 27.4, Monocytes % 10.3 H, Eosinophils % 8.7 H, Basophils % 1.1, Absolute Granulocytes 3.6, Absolute Lymphocytes 1.9, Absolute Monocytes 0.7 H, Absolute Eosinophils 0.6, Absolute Basophils 0.1, PUBS MCHC 32.9 L 07/24/162057: Anion Gap 12, Estimated GFR > 60, BUN/Creatinine Ratio 21.0, Glucose 244 H, Calcium 9.1, Total Bilirubin 0.5, AST 26, ALT 45, Alkaline Phosphatase 85, Troponin I 2.46 *H, Total Protein 6.0 L, Albumin 3.5, Globulin 2.5, Albumin/ Globulin Ratio 1.4, PT 11.3, INR 1.08, APTT 28, CBC w Diff NO MAN DIFF REQ, RBC 4.23 L, MCV 93.2, MCH 30.4, RDW 12.5, MPV 9.7, Gran % 62.7, Lymphocytes % 21.4, Monocytes % 9.0, Eosinophils % 6.0 H, Basophils % 0.9, Absolute Granulocytes 4.9, Absolute Lymphocytes 1.7, Absolute Monocytes 0.7 H, Absolute Eosinophils 0.5, Absolute Basophils 0.1, PUBS MCHC 32.6 L Recent Imaging Studies: Echo-LVEF 45-50%, mild , apical, anterior, septal akinesis-unchanged carotid US-50-79% right ICA stenosis Assessment/Plan Assessment/Plan 66 year old male h/o HTN, dyslipidemia, DM, bicuspid AV with mild , s/p LAD MARLENE 6 days ago, brief episode of PAF post stenting presents with right MCA stroke, symptoms resolved. Ekg shows persistent anterior ST elevations, troponin mildly elevated-residual elevation from recent [place]. Telemetry revealed NSR, no AF. BP not well controlled 50-79% right ICA stenosis Plan: continue ASA+Brilinta increase lisinopril to 20 mg qd continue high dose statin, carvedilol vascular surgery consult for right CEA I recommend to wait for 5 weeks (6 weeks after acute IL) with right carotid endartectomy f/u with me next week Continue telemetry? Yes
[2016-07-26 08:48] VITALS: BP 132/80
--- NOTE | 2016-07-26 09:00 | CT SCAN REPORT ---
EXAMINATION: CT HEAD WITHOUT CONTRAST CLINICAL INFORMATION: Follow-up CT scan of the head. COMPARISON: CT scan of the head 07/24/2016. TECHNIQUE: Contiguous axial imaging was performed from the skull base to vertex without intravenous administration of contrast. DLP: 672.25 mGy-cm FINDINGS: There is an evolving infarct within the vascular territory of the right middle cerebral artery involving the frontal operculum and the insular cortex. There is no evidence of hemorrhagic transformation. No acute ischemia is visualized elsewhere within the brain. This acute finding is superimposed upon a few scattered chronic small vessel ischemic changes within the periventricular white matter. There is no intracranial mass effect or midline shift. No abnormal extra axial collection. Lateral and third ventricles are normal. No hydrocephalus. The calvarium and skull base are intact. Mastoid air cells and middle ear cavities are well aerated. There is mild to moderate paranasal sinus disease primarily affecting the ethmoid air cells and the alveolar recesses of the maxillary sinuses. Globes and orbits are symmetric. IMPRESSION: There is an evolving infarct within the right middle cerebral artery territory involving the right frontal operculum and insular cortex. No evidence of hemorrhagic transformation. This critical result was discussed with Ariana Sharif at 07/26/2016 8:54 AM and it was ascertained that the content and urgency of the report was understood at the time of direct communication.
--- NOTE | 2016-07-26 10:09 | PN- Housestaff ---
ALVARO SWAN 07/26/16 0939: Subjective Follow-up For: Left hemiparesis with dysarthria-symptoms resolved, has been in Observation since 07/24/2016 Complaints: no complaints Subjective: No overnight events. Patient is alert awake and oriented. He is hemodynamically stable. His symptoms of left hemiparesis and dysarthria have resolved. He denies any new neuro deficit. No swallowing difficulty. Walking independently without any assistance. Review of Systems Constitutional: Reports: see HPI. Objective Last 24 Hrs of Vital Signs/I&O Vital Signs Date Time Temp Pulse Resp B/P B/P Pulse O2 O2 Flow FiO2 Mean Ox Delivery Rate 07/26 0848 98.1 61 16 132/80 98 Room Air 07/25 2200 98.8 64 20 160/80 97 Room Air 07/25 2151 62 160/80 07/25 1617 98.1 65 20 128/78 98 Room Air 07/25 1206 97.9 60 20 134/68 96 Room Air 07/25 1113 97.8 94 18 170/76 98 Room Air 07/25 1004 98.0 61 20 174/90 Intake & Output 07/26 1600 07/26 0800 07/26 0000 Intake Total 100 100 Output Total Balance 100 100 Intake, Oral 100 100 Physical Exam General Appearance: Alert, Oriented X3, Cooperative, No Acute Distress HEENT: Mucous Membr. moist/pink Cardiovascular: systolic murmur upper left sternal border Lungs: Clear to Auscultation Abdomen: Normal Bowel Sounds, Soft, No Tenderness Neurological: Normal Speech, Strength at 5/5 X4 Ext, Sensation Intact, Cranial Nerves 3-12 NL Extremities: No Edema Current Medications: Current Medications Sig/Krystle Start time Last Medication Dose Route Stop Time Status Admin Acetaminophen 650 MG Q6P PRN 07/240 AC PO Acetaminophen/ 1 TAB Q6P PRN 07/24 2229 AC Hydrocodone Bitart PO Aspirin Buffered 81 MG QAM 07/25 1000 AC 07/25 PO 1004 Atorvastatin Calcium 80 MG QPM 07/250 AC 07/25 PO 2204 Carvedilol 12.5 MG BID 07/25 1000 AC 07/25 PO 1004 Cholecalciferol 1,000 IU QAM 07/25 1000 AC 07/25 PO 1004 Cyanocobalamin 1,000 MCG QAM 07/25 1000 AC 07/25 PO 1004 Dextrose/Sodium 1,000 ML Q13H 07/24 2300 DC 07/24 Chloride IV 07/25 1159 2346 Heparin Sodium 5,000 UNIT Q8 07/25 1400 AC 07/26 (Porcine) SC 0600 Insulin Aspart 0 TIDAC 07/25 1700 AC 07/26 SC 0802 Insulin Detemir 12 UNITS BID 07/24 2300 AC 07/25 SC 2143 Insulin Human Regular 0 Q6 07/24 2359 DC 07/25 SC 0621 Lisinopril 10 MG DAILY 07/26 1000 DC PO Lisinopril 20 MG DAILY 07/26 1000 AC PO Lisinopril 5 MG ONCE ONE 07/25 1200 CAN PO 07/25 1201 Morphine Sulfate 4 MG Q4P PRN 07/24 2230 AC IV Sertraline HCl 25 MG QAM 07/25 1000 AC 07/25 PO 1004 Ticagrelor 90 MG BID 07/25 1000 AC 07/25 PO 2147 Last 24 Hrs of Lab/Bryce Results Last 24 Hrs of Labs/Mics: Laboratory Tests 07/26/16 0620: Triglycerides 112, Cholesterol 118, LDL Cholesterol, Calc 61 L, HDL Cholesterol 35 L, Cholesterol/HDL Ratio 3 07/25/16 1240: Troponin I 1.55 *H Assessment/Plan Assessment: 66 year old man h/o HTN, dyslipidemia, DM, bicuspid AV with mild , ACS s/p thrombectomy and MARLENE in LAD 6 days prior to admission, brief episode of PAF post stenting converted to normal sinus rhythm with IV metoprolol has been admitted on neuro cardiac floor for: 1. Left hemiparesis with dysarthria. Most likely source is right internal carotid artery atherosclerosis. * Resolved completely. * Initial CT did not show any acute intracranial pathology. No MRI due to recent cardiac stent * Repeat CT head showing evolving infarct within the right MCA territory without hemorrhagic transformation. * Patient denies any new neuro deficit. * Echo showed akinetic apex, distal anterior septum and distal anterior wall. Left ventricular ejection fraction 45-50%. No thrombus. * Carotid Doppler ultrasound showing 50-79% stenosis right internal carotid artery * We will continue aspirin, Brilinta and high-dose statin. * Continue neuro checks. * Vascular surgery consult. Carotid endarterectomy recommended after 5 weeks per cardio * Appreciate neuro consult 2. ACS s/p thrombectomy and MARLENE stent in LAD, brief episode of PAF post stenting. * Positive trops likely secondary to recent NE * trended down 2.46--2.09--1.55 * continue aspirin, Brilinta, carvedilol and Lisinopril. * low dose rivaroxaban in 4 weeks in addition to dual antiplatelet therapy per cardio * PCI next week 3. Hypertension * Systolic Blood pressure on higher side * Lisinopril dose has been increased up to 20 mg this morning per cardio 4. DVT prophylaxis * Subcutaneous heparin CODE STATUS: Full code Problem List: 1. CVA (cerebral vascular accident) Pain Ratin Pain Location: no pain Pain Goal: Remain pain free Pain Plan: Tylenol Tomorrow's Labs & Rationales: None DVT/Prophylaxis: pharmacological Consulting Request: Consulting Physician: Dr. Maynard Reason for Consult: Recent NE and now stroke ALEX CULLEN MD 07/26/16 1147: Attending MD Review Statement Attending Statement Attending MD Statement: examined this patient, discuss w/resident/PA/VEGETABLE COOK, agreed w/resident/PA/VEGETABLE COOK, reviewed EMR data (avail) Attending Assessment/Plan: 66M PMH HTN, dyslipidemia, T2DM, bicuspid AV with mild , s/p LAD MARLENE on 07/19, brief episode of PAF, brought in under observation on telemetry for acute onset left facial droop and arm weakness with slurred speech, not a candidate for tPA due to bleeding risk. Symptoms have resolved, as patient's speech, arm strength, and facial droop are back to baseline. His BP has remained well controlled. Echocardiogram shows EF 45-50% with mild and no evidence of mural thrombus. Carotid doppler shows right sided 50-79% stenosis. 1. Acute right MCA stroke 2. Right carotid stenosis 3. Coronary artery disease s/p stent 4. Paroxysmal atrial fibrillation 5. Bicuspid aortic valve Plan - Will continue observation in telemetry - Obtain CTA neck to evaluate carotid lesions - Vascular surgery consult - Follow neurology and cardiology recommendations - Continue ASA and Brilinta - Per cardiology will hold on NOAC for now - Continue high dose statin - Continue home medications - Discharge home today after CTA neck and discussion with vascular for plan for evaluation for CEA
[2016-07-26] MEDS ORDERED: LISINOPRIL20 M1 PO (10:12)
[2016-07-26 16:00] VITALS: BP 128/70
--- NOTE | 2016-07-26 16:06 | CT SCAN REPORT ---
EXAMINATION: CT NECK ANGIOGRAM CLINICAL INFORMATION: Right carotid stenosis. Stroke. COMPARISON: CT head 07/26/2016. TECHNIQUE: Plastic Block Boiler Reliner images were obtained. A CT angiogram of the neck was performed in the arterial phase after the intravenous administration of 94 mL Optiray 320. MIP reconstructions were generated in multiple orientations at the acquisition workstation. Multiple three-dimensional surface rendered images and maximum intensity projection images were generated on a dedicated 3-D lab workstation. Total exam dose-length product 1222.91 mGy-cm FINDINGS: The aortic arch apex is unremarkable. The origins of the major aortic branches are patent. Common carotid arteries are normal. There is heavily calcified atheromatous plaque involving the right carotid bifurcation causing 35% stenosis of the right internal carotid artery at its origin. There appears to be an ulceration involving the lipid-laden component of the plaque best illustrated on sagittal MIP image 12 of 22 series 203. The remainder of the extracranial right internal carotid artery is patent. There is a mild degree of eccentric atheromatous plaque involving the left carotid bifurcation. No left internal carotid artery stenosis. The cervical segments of the vertebral arteries as well as their origins are patent. Intradural vertebral artery segments and basilar artery are patent. The petrous, cavernous, and supraclinoid segments of internal carotid arteries are patent. Of note there appears to be a thrombus near the origin of a right middle cerebral artery branch best illustrated on axial image 500 of 524 series 2 that coincides with the ischemic changes within the right middle cerebral artery territory. There is some reconstitution of filling of the vessel distal to the thrombus. The visualized portions of the anterior, middle, and posterior cerebral artery complexes are otherwise unremarkable. IMPRESSION: Heavily calcified atheromatous plaque causes 35% stenosis of the right internal carotid artery at its origin. There also appears to be an ulceration involving the lipid-laden component of the plaque as described above. Limited visualization of the intracranial vessels demonstrates a thrombus near the origin of a right middle cerebral artery branch that coincides with the ischemic changes within the right middle cerebral artery territory. The remainder of the CT angiogram of the neck is unremarkable.
--- NOTE | 2016-07-26 18:09 | Event Note ---
Event Note Event Note: Situation : CTA Neck findings Brief :The CtA Neck findings findings were noted to be Heavily calcified atheromatous plaque causes 35% stenosis of the right internal carotid artery at its origin. There also appears to be an ulceration involving the lipid-laden component of the plaque as described above. Limited visualization of the intracranial vessels demonstrates a thrombus near the origin of a right middle cerebral artery branch that coincides with the ischemic changes within the right middle cerebral artery territory. The remainder of the CT angiogram of the neck is unremarkable. * The above findigns were discussed by the resident Ariana with Dr rowan. * we were asked to follow up with Dr rowan recommendations. * Dr Rowan got in touch with Vascular surgeon and he is to see the patient - Dr loyola. * We discussed the case with Dr. Lloyd who was the legal consultant nuerologist who recommended to continue patient on statin and asa, antiplatelets and there would be no acute mx needed as per imaging findisngs. * However Dr Rose has seen this patient earlier yday, therefore findins were also discussed with DR rose. He said that with the current findings related to stroke, the thrombus was always a possibility and we will not change any mx. * Case was also discussed with Dr carver, who recommended to keep the patient in the hospital to monitor for 24 hours, there we will continue to keep the patient here and will not discharge him today. * Also the vascualr surgery evaluation is still pending. * Plan was discussed with acid condenser Dr madera.
[2016-07-26 22:00] VITALS: BP 130/80
--- NOTE | 2016-07-26 22:54 | Event Note ---
Event Note Event Note: I spoke with Dr. Mcgill the anhydrous ammonia production supervisor vascular surgeon, no recommendation for any urgent vascular procedure and revascularization at this time, patient will be evaluated in a.m.
--- NOTE | 2016-07-27 08:01 | PN- Cardiology ---
Subjective Subjective: He remains asymptomatic Objective Vital Signs and I&Os Vital Signs Date Time Temp Pulse Resp B/P B/P Pulse O2 O2 Flow FiO2 Mean Ox Delivery Rate 07/26 1600 98.0 57 20 128/70 100 07/26 1100 132/80 07/26 1000 132/80 07/26 0848 98.1 61 16 132/80 98 Room Air Intake & Output 07/27 0800 07/27 0000 07/26 1600 07/26 0800 07/26 0000 07/25 1600 Intake Total 100 720 100 100 400 Output Total 950 Balance 100 720 100 100 -550 Intake, Oral 100 720 100 100 400 Output, Urine 950 Physical Exam: HEENT-PERRLA, droop resolved Neck-JVP normal, bilateral bruits Heart-S1S2 regular, 2/6 SIERRA ABdomen-soft, not tender, BS+, no organomegaly Extremities-no edema, 2+ pulses, no cyanosis Current Medications: Current Medications Sig/Krystle Start time Last Medication Dose Route Stop Time Status Admin Acetaminophen 650 MG Q6P PRN 07/24 2229 AC PO Acetaminophen/ 1 TAB Q6P PRN 07/24 223 AC Hydrocodone Bitart PO Aspirin Buffered 81 MG QAM 07/25 1000 AC 07/26 PO 1013 Atorvastatin Calcium 80 MG QPM 07/25 2200 AC 07/26 PO 2206 Carvedilol 12.5 MG BID 07/25 1000 AC 07/25 PO 1004 Cholecalciferol 1,000 IU QAM 07/25 1000 AC 07/26 PO 1013 Cyanocobalamin 1,000 MCG QAM 07/25 1000 AC 07/26 PO 1013 Heparin Sodium 5,000 UNIT Q8 07/25 1400 AC 07/26 (Porcine) SC 2205 Insulin Aspart 0 TIDAC 07/25 1700 AC 07/26 SC 1705 Insulin Detemir 12 UNITS BID 07/24 2300 AC 07/26 SC 2211 Lisinopril 10 MG DAILY 07/27 1000 DC PO Lisinopril 20 MG DAILY 07/27 1000 DC PO Lisinopril 10 MG DAILY 07/27 1000 AC PO Lisinopril 20 MG DAILY 07/26 1000 DC PO Morphine Sulfate 4 MG Q4P PRN 07/24 2230 AC IV Sertraline HCl 25 MG QAM 07/25 1000 AC 07/26 PO 1013 Ticagrelor 90 MG BID 07/25 1000 AC 07/26 PO 2212 Results Last 48 Hrs of Labs/Mics: Laboratory Tests 07/26/16 0620: Triglycerides 112, Cholesterol 118, LDL Cholesterol, Calc 61 L, HDL Cholesterol 35 L, Cholesterol/HDL Ratio 3 07/25/16 1240: Troponin I 1.55 *H Assessment/Plan Assessment/Plan 66 year old male h/o HTN, dyslipidemia, DM, bicuspid AV with mild , s/p LAD MARLENE 6 days ago, brief episode of PAF post stenting presents with right MCA stroke, symptoms resolved. Ekg shows persistent anterior ST elevations, troponin mildly elevated-residual elevation from recent ID. Telemetry revealed NSR, no AF. BP better controlled 50-79% right ICA stenosis by US, CTA showed 35% ulcerated right ICA plaque, branch of middle cerebral artery thrombus Plan: continue ASA+Brilinta lisinopril to 20 mg qd continue high dose statin, carvedilol vascular surgery consult for right CEA I recommend to wait for 5 weeks (6 weeks after acute ID) with right carotid endartectomy unless vascular feels that he needs urgent endartectomy given ulcerated plaque. f/u with me next week Continue telemetry? Yes
[2016-07-27 08:33] VITALS: BP 122/84
--- NOTE | 2016-07-27 09:54 | Cons- Vascular Surgery ---
General Information and HPI Consulting Request Date of Consult: 07/27/16 Requested By: ALEX CULLEN MD Reason for Consult: carotid stenosis History of Present Illness: I Dr. Costa dictating vascular consultation 07/27/2016 9:30 AM Reason for consultation is right carotid stenosis right hemispheric stroke minor HPI This is a 4-year-old gentleman who quit smoking 1 week ago after suffering a heart attack He was seen at [facility] where he underwent coronary stenting The time he is noted to have atrial fibrillation He has further cardiac dimension planned in the future He was discharged on dual antiplatelet therapy 3 days ago his noted he appeared weak on the left side with us slurred speech and drooped lip, all symptoms resolved in less than 24 hours and he did not require TPA Workup at [facility] showed a small right hemispheric stroke Right duplex showed approximately 50% right ICA stenosis CTA confirmed approximately 50% right ICA stenosis We've been asked to give recommendations He has multiple risk factors for stroke including aortic stenosis aortic atherosclerosis atrial fibrillation in addition to his carotid disease Patient is currently treated with dual The platelet therapy Physical exam Patient awake alert neurologically intact Is good palpable radial pulses and pedal pulses bilaterally His heart regular lungs occurs on an soft nontender He has no leg edema Duplex shows a mildly elevated velocities of the right ICA with peak systolic velocity 156 and end-diastolic velocity of 30 CTA shows moderate atherosclerotic plaque in the right bulb with minimal ulceration and moderate stenosis at about 50% consistent with the duplex findings I impression Moderate right ICA stenosis, I do not think this was the likely cause of the stroke and other risk factors should be entertained especially the recent cardiac pathology In addition to the The platelet therapy I would consider anti-coagulation He will need regular follow-up in my office to monitor his carotid stenosis I asked him to see me in the next 4 weeks I also strongly encouraged him to continue to stop smoking Allergies/Medications Allergies: Coded Allergies: No Known Allergies (07/24/16) Home Med List: Aspirin (Ecotrin*) 81 MG TABLET.DR 1 TAB PO QAM HEART/BLOOD (Reported) Atorvastatin Calcium (Lipitor) 80 MG TABLET 1 TAB PO QPM CHOLESTEROL ( Reported) Carvedilol 12.5 MG TABLET 1 TAB PO BID HEART/BP (Reported) Cholecalciferol (Vitamin D3) 1,000 UNIT TABLET 1 TAB PO QAM SUPPLEMENT ( Reported) Cyanocobalamin (Vitamin B-12) 1,000 MCG TABLET 1 TAB PO QAM SUPPLEMENT ( Reported) Insulin-Lantus (Lantus) 100 UNIT/ML VIAL 25 UNITS SC QPM DM (Reported) Lisinopril 10 MG TABLET 1 TAB PO QPM BP (Reported) Metformin HCl 1,000 MG TABLET 1 TAB PO BID DM (Reported) Multivitamin (Multi-Day Vitamins) 1 EACH TABLET 1 TAB PO QAM SUPPLEMENT ( Reported) Sertraline HCl 25 MG TABLET 1 TAB PO QAM MENTAL HEALTH (Reported) Ticagrelor (Brilinta) 90 MG TABLET 1 TAB PO BID HEART/BLOOD (Reported) Current Medications: Current Medications Sig/Krystle Start time Last Medication Dose Route Stop Time Status Admin Acetaminophen 650 MG Q6P PRN 07/24 223 AC PO Acetaminophen/ 1 TAB Q6P PRN 07/24 223 AC Hydrocodone Bitart PO Aspirin Buffered 81 MG QAM 07/25 1000 AC 07/27 PO 0942 Atorvastatin Calcium 80 MG QPM 07/25 2200 AC 07/26 PO 2206 Carvedilol 12.5 MG BID 07/25 1000 AC 07/25 PO 1004 Cholecalciferol 1,000 IU QAM 07/25 1000 AC 07/27 PO 0942 Cyanocobalamin 1,000 MCG QAM 07/25 1000 AC 07/27 PO 0942 Heparin Sodium 5,000 UNIT Q8 07/25 1400 AC 07/26 (Porcine) SC 2205 Insulin Aspart 0 TIDAC 07/25 1700 AC 07/26 SC 1705 Insulin Detemir 12 UNITS BID 07/24 2300 AC 07/27 SC 0945 Lisinopril 10 MG DAILY 07/27 1000 DC PO Lisinopril 20 MG DAILY 07/27 1000 DC PO Lisinopril 10 MG DAILY 07/27 1000 AC PO Lisinopril 20 MG DAILY 07/26 1000 DC PO Morphine Sulfate 4 MG Q4P PRN 07/24 2230 AC IV Sertraline HCl 25 MG QAM 07/25 1000 AC 07/27 PO 0942 Ticagrelor 90 MG BID 07/25 1000 AC 07/27 PO 0942 Past History Medical History Neurological: NONE EENT: NONE Cardiovascular: hypertension, NV WITH STENT Respiratory: NONE Gastrointestinal: NONE Hepatic: NONE Renal: NONE Musculoskeletal: NONE Psychiatric: NONE Endocrine: IDDM Blood Disorders: NONE Cancer(s): NONE SHAKE MAKER/Reproductive: NONE Surgical History Pertinent Surgical History: non-contributory Psychosocial History Smoking Status: Never Smoked ETOH Use: denies use Illicit Drug Use: denies illicit drug use Assessment/Plan Consult Acknowledgment - Thank you for your consult request.
--- NOTE | 2016-07-27 10:24 | PN- Housestaff ---
ALVARO SWAN 07/27/16 1021: Subjective Follow-up For: CVA- Right MCA territory infarct Moderate right ICA stenosis Subjective: No overnight events. This morning patient is alert, awake and oriented. Hemodynamically stable. He is asymptomatic. No new neuro deficit. Review of Systems Constitutional: Reports: see HPI. Objective Last 24 Hrs of Vital Signs/I&O Vital Signs Date Time Temp Pulse Resp B/P B/P Pulse O2 O2 Flow FiO2 Mean Ox Delivery Rate 07/27 0833 98.6 60 18 122/84 99 Room Air 07/26 2200 99.0 55 20 130/80 98 Room Air 07/26 1600 98.0 57 20 128/70 100 07/26 1100 132/80 Intake & Output 07/27 1600 07/27 0800 07/27 0000 Intake Total 100 100 Output Total Balance 100 100 Intake, Oral 100 100 Physical Exam General Appearance: Alert, Oriented X3, Cooperative, No Acute Distress Neck: Supple Cardiovascular: SYSTOLIC MURMUR Lungs: Clear to Auscultation Abdomen: Normal Bowel Sounds, Soft, No Tenderness Neurological: Normal Speech, Strength at 5/5 X4 Ext, Sensation Intact, Cranial Nerves 3-12 NL Extremities: No Edema Current Medications: Current Medications Sig/Krystle Start time Last Medication Dose Route Stop Time Status Admin Acetaminophen 650 MG Q6P PRN 07/240 AC PO Acetaminophen/ 1 TAB Q6P PRN 07/24 223 AC Hydrocodone Bitart PO Aspirin Buffered 81 MG QAM 07/25 1000 AC 07/27 PO 0942 Atorvastatin Calcium 80 MG QPM 07/25 2200 AC 07/26 PO 2206 Carvedilol 12.5 MG BID 07/25 1000 AC 07/25 PO 1004 Cholecalciferol 1,000 IU QAM 07/25 1000 AC 07/27 PO 0942 Cyanocobalamin 1,000 MCG QAM 07/25 1000 AC 07/27 PO 0942 Heparin Sodium 5,000 UNIT Q8 07/25 1400 AC 07/26 (Porcine) SC 2205 Insulin Aspart 0 TIDAC 07/25 1700 AC 07/26 SC 1705 Insulin Detemir 12 UNITS BID 07/24 2300 AC 07/27 SC 0945 Lisinopril 10 MG DAILY 07/27 1000 DC PO Lisinopril 20 MG DAILY 07/27 1000 DC PO Lisinopril 10 MG DAILY 07/27 1000 AC PO Lisinopril 20 MG DAILY 07/26 1000 DC PO Morphine Sulfate 4 MG Q4P PRN 07/24 2230 AC IV Sertraline HCl 25 MG QAM 07/25 1000 AC 07/27 PO 0942 Ticagrelor 90 MG BID 07/25 1000 AC 07/27 PO 0942 Assessment/Plan Assessment: 66 year old man h/o HTN, dyslipidemia, DM, bicuspid AV with mild , ACS s/p thrombectomy and MARLENE in LAD 6 days prior to admission, brief episode of PAF post stenting converted to normal sinus rhythm with IV metoprolol has been admitted on neuro cardiac floor for: 1. Left hemiparesis with dysarthria. Right MCA territory infarct. * Resolved completely. * No new neuro deficits * We will continue aspirin, Brilinta and high-dose statin. * Continue neuro checks * Awaiting further neuro recommendations 2. Moderate right internal carotid artery stenosis * Vascular consult appreciated * No acute intervention right now * Outpatient follow-up in next 4 weeks 3. ACS s/p thrombectomy and MARLENE stent in LAD, brief episode of PAF post stenting. * Positive trops likely secondary to recent OR * trended down 2.46--2.09--1.55 * continue aspirin, Brilinta, carvedilol and Lisinopril. * low dose rivaroxaban in 4 weeks in addition to dual antiplatelet therapy per cardio * PCI next week 3. Hypertension * Blood pressure well controlled 4. DVT prophylaxis * Subcutaneous heparin CODE STATUS: Full code Problem List: 1. CVA (cerebral vascular accident) Pain Ratin Pain Location: NONE Pain Goal: Remain pain free Pain Plan: Tylenol Tomorrow's Labs & Rationales: NONE DVT/Prophylaxis: pharmacological Consulting Request: Consulting Physician: Dr. Maynard Reason for Consult: Recent OR and now stroke ALEX CULLEN MD 07/27/16 1051: Attending MD Review Statement Attending Statement Attending MD Statement: examined this patient, discuss w/resident/PA/PIPER HELPER, agreed w/resident/PA/PIPER HELPER, reviewed EMR data (avail) Attending Assessment/Plan: 66M PMH HTN, dyslipidemia, T2DM, bicuspid AV with mild , s/p LAD MARLENE on 07/19, brief episode of PAF, brought in under observation on telemetry for acute onset left facial droop and arm weakness with slurred speech, not a candidate for tPA due to bleeding risk. Symptoms have resolved, as patient's speech, arm strength, and facial droop are back to baseline. His BP has remained well controlled. Echocardiogram shows EF 45-50% with mild and no evidence of mural thrombus. Carotid doppler shows right sided 50-79% stenosis. Obtained CTA neck yesterday which showed, per vascular, 60% right carotid stenosis and possible MCA thrombus. Out of window for endovascular intervention and tPA. Several discussions were had with vascular surgery, neurology, and cardiology regarding plan of care. 1. Acute right MCA stroke 2. Right carotid stenosis 3. Coronary artery disease s/p stent 4. Paroxysmal atrial fibrillation 5. Bicuspid aortic valve Plan - Stable for discharge home - Will not start anti-coagulation at this time due to bleeding risk - Follow vascular surgery, neurology, and cardiology recommendations - Continue ASA and Brilinta - Continue high dose statin - Continue home medications - Will stop Coreg on discharge as patient has been persistently bradycardic (but asymptomatic) while here. Can be restarted as an outpatient by cardiology if appropriate - Will follow up as outpatient with cardiology and vascular surgery for eventual carotid endartectomy
[2016-07-27 11:46] VITALS: BP 122/62
== END 2016-07-27 13:10 ==
LOC: ERH 20:25 → ERHI 22:06 → 1NO 22:06 → ERHI 07-25 07:38 → ENRESERV 07-25 10:29 → 1NO 07-25 11:30 → ENPENDDIS 07-26 17:07 → EDPENDDISDT 07-27 11:04 → EDPENDDISTM 07-27 11:04 → 1NO 07-27 13:10
PROVIDERS: Emergency Medicine; Internal Medicine Infectious Disease; Student in an Organized Health Care Education/Training Program; ADMIT Internal Medicine
DX: I63.231 Cerebral infarction due to unspecified occlusion or stenosis of right carotid arteries (principal); I11.9 Hypertensive heart disease without heart failure; E11.9 Type 2 diabetes mellitus without complications; E78.5 Hyperlipidemia, unspecified; F32.9 Major depressive disorder, single episode, unspecified; F41.9 Anxiety disorder, unspecified; I48.0 Paroxysmal atrial fibrillation
CPT/HCPCS: 36415; 82436; 92610-GN; 93005; 93010; 93306; 96372; G0378; G8996-GN; G8997-GN; G8998-GN; J1644; J3490; J7042